=== PATIENT | male | born 1975 | race Caucasian/White ===

== ENCOUNTER 2023-07-06 08:18 | Outpatient (OUT) | payer OTHER, SELFPAY ==
[2023-07-06 08:40] LABS: Basophils Absolute Auto 0.1 10^3/uL (0.0-0.1); Basophils Percent Auto 1.9 % (0.2-2.0); Eosinophils Absolute Auto 0.2 10^3/uL (0.0-0.7); Eosinophils Percent Auto 2.6 % (0.9-7.0); Hematocrit 43.7 % (42.0-54.0); Hemoglobin 15.4 g/dL (14.0-18.0); Immature Granulocytes Abs Auto 0.01 10^3/uL (0.00-0.03); Immature Granulocytes Pct Auto 0.2 % (0.0-0.5); Lymphocytes Absolute Auto 2.7 10^3/uL (1.2-3.8); Lymphocytes Percent Auto 46.1 % (20.5-60.0); Mean Corpuscular HGB Conc 35.2 g/dL (29.9-35.2); Mean Corpuscular Hemoglobin 32.8 pg (25.9-34.0); Mean Corpuscular Volume 93.2 fL (80.0-94.0); Mean Platelet Volume 10.6 fL (9.5-13.5); Monocytes Absolute Auto 0.5 10^3/uL (0.3-0.8); Neutrophils Absolute Auto 2.4 10^3/uL (1.4-6.5); Neutrophils Percent Auto 40.2 % (43.0-75.0); Platelet Count 191 10^3/uL (150-450); Red Blood Count 4.69 10^6/uL (4.70-6.10); Red Cell Distribution Width 11.4 % (11.0-15.0); White Blood Count 5.9 10^3/uL (4.0-11.0)
[2023-07-06 09:12] LABS: Bilirubin Urine NEGATIVE (NEGATIVE); Blood Urine NEGATIVE (NEGATIVE); Clarity Urine CLEAR (CLEAR); Color Urine LT. YELLOW (YELLOW); Glucose Urine UA NEGATIVE (NEGATIVE); Ketones Urine NEGATIVE (NEGATIVE); Leukocyte Esterase Urine NEGATIVE (NEGATIVE); Nitrite Urine NEGATIVE (NEGATIVE); Protein Urine NEGATIVE (NEG/TRACE); Urine Microscopic Indicated NO; Urobilinogen Urine 0.2 EU/dL (0.2-1.0); pH Urine 5.5 (5.0-9.0)
[2023-07-06 09:18] LABS: Alanine Aminotransferase 81 U/L (16-63); Albumin Globulin Ratio 0.9; Albumin Level 3.8 g/dL (3.4-5.0); Alkaline Phosphatase 56 U/L (46-116); Anion Gap 13.3; Aspartate Amino Transferase 40 U/L (15-37); BUN Creatinine Ratio 7.5; Calcium 8.7 mg/dL (8.5-10.1); Carbon Dioxide 27.6 mmol/L (21.0-32.0); Chloride 102 mmol/L (98-107); Chol HDL Ratio 3.6; Cholesterol 214 mg/dL (<=200); Estimated GFR (African America >60 (>=60); Estimated GFR (Non-African Ame >60 (>=60); Globulin 4.2 g/dL; Glucose 107 mg/dL (74-106); HDL Cholesterol 59 mg/dL (40-60); Potassium 3.9 mmol/L (3.5-5.1); Sodium 139 mmol/L (136-145); TSH W/ REFLEX FT4 5.109 (0.358-3.740); Triglycerides 198 mg/dL (<=150); VLDL CHOLESTEROL 39.6 mg/dL
== END 2023-07-06 08:19 | disposition home or self-care (01) ==
LOC: LAB 08:19
PROVIDERS: PCP Nurse Practitioner; Visit Provider Nurse Practitioner
DX: R53.83 Other fatigue (principal); I10 Essential (primary) hypertension
CPT/HCPCS: 36415; 80053; 80061; 81003; 84443; 85025

== ENCOUNTER 2023-07-12 07:56 | Outpatient (OUT) | payer OTHER, SELFPAY ==
--- OUTSIDE RECORDS SUMMARY | 2023-07-12 08:00 | XMS_ITS | CCD ---
Author Name Unknown Address [address] [place] [id number] Organization [facility] Care Team Providers Care Senior Biostatistician Name Role Phone Rice, Kong W Unavailable Unavailable Rice, Kong W Unavailable Unavailable NONE, XXXX Unavailable Unavailable HIGHLANDER, LISBET Admitting Unavailable HIGHLANDER, LISBET Attending Unavailable WEST, STEVEN Rodrigues Consulting Unavailable HIGHLANDER, LISBET Consulting Unavailable HIGHLANDER, LISBET Admitting Unavailable HIGHLANDER, LISBET Attending Unavailable SIMON SYKES Primary Care Unavailable HIGHLANDER, LISBET Admitting Unavailable HIGHLANDER, LISBET Attending Unavailable SIMON SYKES Primary Care Unavailable HIGHLANDER, LISBET Consulting Unavailable JIMWESLEY NIETO Consulting Unavailable ALBERTAGLORIA Consulting Unavailable HIGHLANDER, LISBET Admitting Unavailable HIGHLANDER, LISBET Attending Unavailable WESTSTEVEN V Consulting Unavailable HIGHLANDER, LISBET Consulting Unavailable HIGHLANDER, LISBET Admitting Unavailable HIGHLANDER, LISBET Attending Unavailable SIMON SYKES Primary Care Unavailable ANAHI DEJESUS Attending Unavailable Allergies Allergy Classification Reported Allergen(s) Allergy Type Date of Onset Reaction(s) Facility (1 source) Erythromycin Drug Allergy [facility] Repository (1 source) Penicillin Drug Allergy [facility] Rep[facility] (1 source) Sulfonamides (Antibiotic) Drug allergy (disorder) [facility] Rep[facility] Problems Active Problems Problem Classification Problem Date Documented Date Episodic/Chronic Other connective tissue disease (5 sources) Achilles tendinitis, left leg; Translations: [ACHILLES TENDINITIS LEFT LEG] Onset: 08-26-2019 Episodic Other non-traumatic joint disorders (5 sources) Pain in left ankle and joints of left foot; Translations: [PAIN IN LEFT ANKLE] Onset: 09-11-2019 Episodic Residual codes; unclassified (1 source) Other specified postprocedural states; Translations: [OTH SPECIFIED POSTPROCEDURAL STATES] Onset: 03-13-2020 Sprains and strains (1 source) Strain of left Achilles tendon, sequela; Translations: [STRAIN LEFT ACHILLES TENDON SEQUELA] Onset: 03-13-2020 Episodic Substance-related disorders (1 source) Nicotine dependence, chewing tobacco, uncomplicated; Translations: [NICOTINE DEPEND CHEW TOBACCO UNCOMP] Onset: 09-11-2019 Chronic Past or Other Problems Problem Classification Problem Date Documented Da te Episodic/Chronic Other connective tissue disease (1 source) Pain in left foot; Translations: [PAIN IN LEFT FOOT] Onset: 09-11-2019 Episodic Results Test Name Value Interpretation Reference Range Facil ity XR ANKLE LT MIN 3 Von 2019 XR ANKLE LT MIN 3 V PROCEDURE: XR ANKLE LT MIN 3 V COMPARISON: 08/12/2019 HISTORY: Pain of left ankle joint FINDINGS: BONES:No fracture, acute abnormality, or significant arthropathy. SOFT TISSUES:Anterior ankle soft tissue swelling. Suspected marked thickening of the Achilles tendon EFFUSION:None visible. OTHER: Negative. IMPRESSION: Suspected marked thickening of the Achilles tendon Electronically authenticated by: STEVEN MCLAIN Date: 2020-03-03 14:27 Normal [facility] XR ANKLE LT MIN 3 VIEWSon XR ANKLE LT MIN 3 VIEWS Patient: SCOTTY WILSON Exam Date: 08/12/2019 : 1975 Gender:M Ordering : DR. LISBET CEDILLO D.P.MOlivia Admission #: [id number] Family : Order #: [id number] CLICK HERE TO VIEW EXAM RADIOLOGY REPORT PROCEDURE: RADIOGRAPH ANKLE LEFT MIN 3 VIEWS COMPARISON: None. INDICATIONS: Acute posterior left ankle pain with palpable lump, initial imaging FINDINGS: BONES: No fracture, acute abnormality, or significant arthropathy. SOFT TISSUES: Posterior soft tissue swelling in the region of the Achilles tendon, corresponding to the patient's palpable mass demarcated with a marker EFFUSION: None visible. OTHER: Negative. CONCLUSION: 1. Posterior soft tissue swelling possibly involving the Achilles tendon Dictated by: Steven Mclain M.D. on 08/12/2019 at 10:11 Approved by: Steven Mclain M.D. on 08/12/2019 at 10:12 Normal [facility] Coding Summary.on 12-22-2017 Coding Summary. CODING DATE: 12/22/2017 [facility] STATUS: Home (Routine DC) PAYOR: Commercial Insurance APC DESCRIPTION 5732 Level 2 Minor Procedures ADMIT DX: REASON FOR VISIT DX: Z30.2 Encounter for sterilization FINAL DX: PRINCIPAL: Z30.2 Encounter for sterilization SECONDARY: PYMT PROC APC STAT DESCRIPTION DOCTOR NAME DATE NOTE: The code number assigned matches the documented diagnosis and / or procedure in the patient's chart. However, the narrative phrase printed from the coding software may appear abbreviated, or result in slightly different terminology. Coded By: Lydia Najera Date Saved: 12/22/2017 07:33 am Normal [facility] Encounters Encounter Date Encounter Type Care Provider Facility Start: 06-21-2023 End: 06-21-2023 ambulatory ANAHI AVALOSXENIABonifacio Not Available Start: 03-10-2020 End: 04-14-2020 Patient encounter procedure [facility] Facility:H1 Start: 03-03-2020 End: 03-04-2020 Patient encounter procedure [facility] Facility:H1 Start: 09-03-2019 End: 09-03-2019 Patient encounter procedure [facility] Facility:H1 Start: 08-26-2019 Encounter for other preprocedural examination [facility] Start: 08-22-2019 End: 08-23-2019 Patient encounter procedure [facility] Facility:H1 Start: 08-12-2019 End: 08-13-2019 Patient encounter procedure [facility] Facility:H1 Start: 12-11-2017 End: 12-12-2017 Ambulatory Kong Holt Facility:[facility] Encounter for other preprocedural examination [facility] Payers Date Payer Category Payer Unknown [id number] 1975 Unknown [id number] 1975 Unknown [id number] 1975 Unknown [id number] .[id number] [id number] 1975 Unknown [id number] .[id number] [id number] 1975 Unknown [id number] 1957 Private Health Insurance [id number] Summary Purpose Family History No Family History Records FoundNo Family History Records FoundNo Family History Records Found Advance Directives No Advanced Directives Records FoundNo Advanced Directives Records FoundNo Advanced Directives Records Found Additional Source Comments (unrecognized sect ion and content) No Status Records FoundNo Status Records FoundNo Status Records Found INFORMATION SOURCE (unrecogn ized section and content) DATE CREATED AUTHOR 12/25/2017 [facility] DATE CREATED AUTHOR AUTHOR'S ORGANIZ ATION 04/15/2020 [facility] DATE CREATED AUTHOR AUTHOR'S ORGANIZ ATION 06/23/2023 [facility] FOR RECORDS PERTAINING TO PATIENTS WHO ARE OR HAVE BEEN ENROLLED IN A CHEMICAL DEPENDENCY/SUBSTANCEABUSE PROGRAM, SOME INFORMATION MAY BE OMITTED. This clinical summary was aggregated from multiple sources. Caution should be exercised in using it in the provision of clinical care. This summary normalizes information from multiple sources, and as a consequence, information in this document may materially change the coding, format and clinical context of patient data. In addition, data may be omitted in some cases. CLINICAL DECISIONS SHOULD BE BASED ON THE PRIMARY CLINICAL RECORDS. [employer] [facility]. provides no warranty or guarantee of the accuracy or completeness of information in this document.
== END 2023-07-12 07:57 | disposition home or self-care (01) ==
LOC: SLEEP 07:56
PROVIDERS: PCP Nurse Practitioner; Visit Provider Nurse Practitioner
DX: G47.33 Obstructive sleep apnea (adult) (pediatric) (principal)
CPT/HCPCS: 95806

== ENCOUNTER 2023-08-09 08:18 | Outpatient (OUT) | payer OTHER, SELFPAY ==
--- OUTSIDE RECORDS SUMMARY | 2023-08-09 08:21 | XMS_ITS | CCD ---
Author Name Unknown Address [address] [place] [address] Organization [facility] Care Team Providers Care Community Recreation Coordinator Name Role Phone Rice, Kong W Unavailable Unavailable Rice, Kong W Unavailable Unavailable NONE, XXXX Unavailable Unavailable HIGHLANDER, LISBET Admitting Unavailable HIGHLANDER, LISBET Attending Unavailable WEST, STEVEN Rodrigues Consulting Unavailable HIGHLANDER, LISBET Consulting Unavailable HIGHLANDER, LISBET Admitting Unavailable HIGHLANDER, LISBET Attending Unavailable NADERERSIMON Primary Care Unavailable HIGHLANDER, LISBET Admitting Unavailable HIGHLANDER, LISBET Attending Unavailable NADERER, SIMON Harrington Primary Care Unavailable HIGHLANDER, LISBET Consulting Unavailable JIM, WESLEY Consulting Unavailable ALBERTA, GLORIA Consulting Unavailable HIGHLANDER, LISBET Admitting Unavailable HIGHLANDER, LISBET Attending Unavailable WEST, STEVEN Rodrigues Consulting Unavailable HIGHLANDER, LISBET Consulting Unavailable HIGHLANDER, LISBET Admitting Unavailable HIGHLANDER, LISBET Attending Unavailable NADERESIMON Alonso Primary Care Unavailable NATALIA LOPEZ Attending Unavailable AICHHOLBonifacio, NATALIA Attending Unavailable Aichholbonifacio CLAY HOUSE WORKER-Natalia FERNÁNDEZ Primary Care Provider SATHISH DE LA CRUZ Attending Unavailable NATALIA LOPEZ Referring Unavailable NATALIA LOPEZ Primary Care Unavailable Allergies Allergy Classification Reported Allergen(s) Allergy Type Date of Onset Reaction(s) Facility (1 source) Erythromycin Drug Allergy [facility] Repository (1 source) Penicillin Drug Allergy [facility] Repository (1 source) Sulfonamides (Antibiotic) Drug allergy (disorder) [facility] Repository (2 sources) Erythromycin; Translations: [ERYTHROMYCIN] Drug Allergy 3 Other (See Comments) [facility] (2 sources) Penicillins; Translations: [PENICILLINS] Propensity to adverse reactions to drug 3 Other (See Comments) [facility] (2 sources) Sulfamethazine; Translations: [SULFAMETHAZINE] Drug Allergy 3 Other (See Comments) [facility] Medications Current Medications Medication Drug Class(es) Dates Sig (Normalized) Sig (Original) amLODIPine 5 mg oral tablet (1 source) Dihydropyridine [facility] Eduardo Start: 07-13-2023 End: 08-12-2023 take 1 tablet by mouth in the morning amLODIPine (NORVASC) 5 mg tablet Take 1 tablet (5 mg total) by mouth in the morning. 0 07/13/2023 08/12/2023 Active multivit-min/ferr ous fumarate (MULTI VITAMIN ORAL) (1 source) multivit-min/earlene rosanne fumarate (MULTI VITAMIN ORAL) Take by mouth. 0 Active Problems Active Problems Problem Classification Problem Date Documented Date Episodic/Chronic Hemorrhoids (2 sources) Skin tag; Translations: [Residual hemorrhoidal skin tags] Onset: 08-02-2023 08-02-2023 Episodic Other circulatory disease (1 source) H/O: hypertension; Translations: [Personal history of other diseases of the circulatory system] 08-02-2023 Episodic Other circulatory disease (1 source) Personal history of other diseases of the circulatory system; Translations: [Personal history of other diseases of the circulatory system] Onset: 08-02-2023 Episodic Other connective tissue disease (5 sources) Achilles tendinitis, left leg; Translations: [ACHILLES TENDINITIS LEFT LEG] Onset: 08-26-2019 Episodic Other non-traumatic joint disorders (5 sources) Pain in left ankle and joints of left foot; Translations: [PAIN IN LEFT ANKLE] Onset: 09-11-2019 Episodic Other skin disorders (1 source) Pilar cyst of scalp; Translations: [Pilar cyst] 08-02-2023 Episodic Other skin disorders (1 source) Pilar cyst; Translations: [Pilar cyst] Onset: 08-02-2023 Episodic Residual codes; unclassified (1 source) Other specified postprocedural states; Translations: [OTH SPECIFIED POSTPROCEDURAL STATES] Onset: 03-13-2020 Sprains and strains (1 source) Strain of left Achilles tendon, sequela; Translations: [STRAIN LEFT ACHILLES TENDON SEQUELA] Onset: 03-13-2020 Episodic Substance-related disorders (1 source) Nicotine dependence, chewing tobacco, uncomplicated; Translations: [NICOTINE DEPEND CHEW TOBACCO UNCOMP] Onset: 09-11-2019 Chronic Unclassified (1 source) Cyst Onset: 08-02-2023 Past or Other Problems Problem Classification Problem [...] by: STEVEN MCLAIN Date: 2020-03-03 14:27 Normal [facility] XR ANKLE LT MIN 3 VIEWSon XR ANKLE LT MIN 3 VIEWS Patient: ULISSES WILSON Exam Date: 08/12/2019 : 1975 Gender:M Ordering : DR. LISBET PuentesPNani Admission #: [id number] Family : Order #: [id number] CLICK HERE TO VIEW EXAM RADIOLOGY REPORT [...] Mclain M.D. on 08/12/2019 at 10:12 Normal [facility] Coding Summary.on 12-22-2017 Coding Summary. CODING DATE: 12/22/2017 FINAL [facility] STATUS: Home (Routine DC) PAYOR: Commercial Insurance [...] Najera Date Saved: 12/22/2017 07:33 am Normal [facility] Encounters Encounter Date Encounter Type Care Provider Facility Start: 08-02-2023 End: 08-02-2023 ambulatory SATHISH DE LA CRUZ [facility] Start: 08-02-2023 End: 08-02-2023 Office outpatient new 20 minutes Sathish De La Cruz DO Work Phone: [facility] Comment on above: Pilar cyst of scalp (Primary Dx); Skin tags, anus or rectum; History of hypertension Start: 07-13-2023 End: 07-13-2023 ambulatory NATALIA AICHHOLZ Not Available Start: 06-21-2023 End: 06-21-2023 ambulatory NATALIA AICHHOLZ Not Available Start: 03-10-2020 End: 04-14-2020 Patient encounter procedure [facility] Facility:H1 Start: 03-03-2020 End: 03-04-2020 Patient encounter procedure [facility] Facility:H1 Start: 09-03-2019 End: 09-03-2019 Patient encounter procedure [facility] Facility:H1 Start: 08-26-2019 Encounter for other preprocedural examination [facility] Start: 08-22-2019 End: 08-23-2019 Patient encounter procedure [facility] Facility:H1 Start: 08-12-2019 End: 08-13-2019 Patient encounter procedure [facility] Facility:H1 Start: 12-11-2017 End: 12-12-2017 Ambulatory Kong Holt Facility[facility] Encounter for other preprocedural examination [facility] Plan of Treatment Date Care Activity Detail Author Start: 08-23-2023 End: 08-23-2023 Patient encounter procedure 08/23/2023 10:30 AM EST Office Visit [facility] [address] [place] [phone] Sathish De La Cruz DO [address] [place] [address] [facility] Start: 03-10-2023 Influenza vaccination Influenza Vacc ine [facility] Start: 1996 DTaP,Tdap and Td Vaccines (1 - Tdap) DTaP,Tdap and Td Vaccines (1 - Tdap) [facility] Start: 10-09-1995 Adult BMI Screening Adult BMI Screen ing [facility] Start: 1989 Depression Screening Depression Scre ening [facility] Start: 1989 Tobacco Screening Tobacco Screening [facility] Payers Date Payer Category Payer Private Health Insurance [employer] POS II [id number] 2015-Present [phone] [address] [place] [address] [id number] 1975 Unknown [id number] 1975 Unknown [id number] 1975 Unknown [id number] 1975 Unknown [id number] 1975 Unknown [id number] 1975 Unknown [id number] 1975 Unknown [id number] 1975 Unknown [id number] 1957 Private Health Insurance [id number] Social History Date Type Detail Facility Start: 08-02-2023 [facility] Start: 08-02-2023 Tobacco use and exposure User of smokeless tobacco [facility] Start: 08-20-2020 End: 08-02-2023 History of Social function [facility] Start: 08-20-2020 End: 08-02-2023 Tobacco use panel [facility] Childcare Unknown [facility] Start: 1975 Sex Assigned At Not on file P [facility] History of Present illness Narrative 08-02-2023 Sathish De La Cruz, DO - 08/02/2023 9:00 AM EST Note Date & Type Note Facility 08-02-2023 History of Presen t illness Narrative Images from the original note were not included. [facility] [address] [facility] [id number] CONSULT NOTE Ulisses Wilson 47 y.o. CHIEF COMPLAINT Chief Complaint Patient presents with Cyst SEBACEOUS CYST, TOP OF HEAD, LEFT& RIGHT TOWARDS BACK OF HEAD, REFERRED BY NATALIA LOPEZ NP Ulisses Wilson is a 47-year-old male who presents complaining of 3 cysts on his scalp which have been present for about 7-8 years. He wishes to have them excised. He saw me about 5 or 6 years ago about the same did not have them removed. He also wants know what he can do for skin tags about his left eye area. MEDICATION Current Outpatient Medications: amLODIPine (NORVASC) 5 mg tablet, Take 1 tablet (5 mg total) by mouth in the morning., Disp: , Rfl: multivit-min/ferrous fumarate (MULTI VITAMIN ORAL), Take by mouth., Disp: , Rfl: ALLERGY Allergies Allergen Reactions Erythromycin Other (See Comments) Throat swells Penicillins Other (See Comments) Throat swells Sulfamethazine Other (See Comments) Throat swells MEDICAL HISTORY History reviewed. No pertinent past medical history. SURGICAL HISTORY History reviewed. No pertinent surgical history. SOCIAL HISTORY Social History Socioeconomic History Marital status: Single Spouse name: Not on file Number of children: Not on file Years of education: Not on file Highest education level: Not on file Occupational History Not on file Tobacco Use Smoking status: Never Smokeless tobacco: Current Vaping Use Vaping Use: Never used Substance and Sexual Activity Alcohol use: Not on file Drug use: Not on file Sexual activity: Not on file Other Topics Concern Not on file Social History Narrative Not on file Social Determinants of Health Financial Resource Strain: Not on file Food Insecurity: Not on file Transportation Needs: Not on file Physical Activity: Not on file Stress: Not on file Social Connections: Not on file Interpersonal Safety: Not on file Housing Instability: Not on file FAMILY HISTORY Family History Problem Relation Age of Onset Diabetes Mother Stroke Father Vision loss Brother Hypertension Brother Diabetes Maternal Aunt Cancer Maternal Grandmother Cancer Paternal Grandmother REVIEW OF SYSTEMS: Constitutional: Denies fevers, denies recent illnesses. Rest review of systems negative except as above. PHYSICAL EXAM Constitutional: He is oriented to person, place, and time. Vital signs are normal. He appears well-developed and well-nourished. About the left eye he has multiple small skin tags 1 mm each about 5-6. Scalp: He has a 2 cm pilar cyst on the top of the scalp a 1.5 cm left posterior pilar cyst and a 0.5 cm pilar cyst on the right posterior scalp. Neurological: He is alert and oriented to person, place, and time. Skin: Skin is warm, dry and intact. Psychiatric: He has a normal mood and affect. His speech is normal and behavior is normal. Cognition and memory are normal. IMPRESSION 1. Multiple pilar cysts of scalp 2. Skin tags about left eye 3. History of hypertension ASSESSMENT & PLAN Return to office for excision of pilar cysts; risks of the procedure can include infection bleeding pain or recurrence. He was told I can remove the skin tags or he can have his remove them after wiping scissors and tweezers with alcohol and snipping them with scissors. He will have her try. Evaluation included: Preparing to see the patient (e.g., review of tests) Obtaining and/or reviewing separately obtained history Performing a medically appropriate examination and/or evaluation Counseling and educating the patient/family/caregiver Referring and communicating with other health anesthesiologist and critical care Pilar cyst of scalp [L72.11] Sathish De La Cruz, This note was created with the assistance of a speech recognition program. While intending to generate a timely document that accurately reflects the content of the visit, no guarantee can be provided that every grammatical or spelling mistake has been or will be identified or corrected. Thank you for your understanding. documented in this encounter [facility] Evaluation note Note Date & Type Note Facility Evaluation note Diagnosis Pilar cyst of scalp- Primary Skin tags, anus or rectum Residual hemorrhoidal skin tags History of hypertension Personal history of other diseases of circulatory system documented in this encounter [facility] Instructions Note Date & Type Note Facility Instructions Not on filedocumented in this en counter [facility] Summary Purpose Family History No Family History Records FoundNo Family History Records FoundNo Family History Records FoundNo Family History Records Found Advance Directives No Advanced Directives Records FoundNo Advanced Directives Records FoundNo Advanced Directives Records FoundNo Advanced Directives Records Found Additional Source Comments (unrecognized sect ion and content) No Status Records FoundNo Status Records FoundNo Status Records FoundNo Status Records Found INFORMATION SOURCE (unrecogn ized section and content) DATE CREATED AUTHOR [facility]/25/2017 [facility] DATE CREATED AUTHOR AUTHOR'S ORGANIZ ATION 04/15/2020 [facility] DATE CREATED AUTHOR AUTHOR'S ORGANIZ ATION 07/14/2023 [facility] EPIC DATE CREATED AUTHOR AUTHOR'S ORGANIZ ATION 08/05/2023 [facility] Reason for Visit (unrecogniz ed section and content) Reason Comments Cyst SEBACEOUS CYST, TOP OF HEAD, LEFT& RIGHT TOWARDS BACK OF HEAD, REFERRED BY NATALIA LOPEZ NP Care Teams (unrecognized sec tion and content) Community Recreation Coordinator Relationship Specialty Start Date End Date Natalia Lopez, CLAY HOUSE WORKER-LOADER [employer] [address] [place] [address] PCP - General Nurse Practitioner 06/21/23 FOR RECORDS PERTAINING TO PATIENTS WHO ARE [...] BE BASED ON THE PRIMARY CLINICAL RECORDS. [facility] [employer] [facility]. provides no warranty or guarantee of the accuracy or completeness of information in this document.
[2023-08-09 11:51] LABS: TSH W/ REFLEX FT4 4.302 uIU/mL (0.358-3.740)
[2023-08-09 12:29] LABS: Estimated Average Glucose 105 mg/dL; Glycohemoglobin A1C 5.3 % (4.5-6.2)
[2023-08-09 15:34] LABS: Free T4 0.84 ng/dL (0.76-1.46)
== END 2023-08-09 08:19 | disposition home or self-care (01) ==
LOC: LAB 08:19
PROVIDERS: PCP Nurse Practitioner; Visit Provider Nurse Practitioner
DX: R79.89 Other specified abnormal findings of blood chemistry (principal); R73.09 Other abnormal glucose
CPT/HCPCS: 36415; 83036; 84439; 84443

== ENCOUNTER 2024-08-08 14:36 | Outpatient (OUT) | payer OTHER, SELFPAY ==
--- NOTE | 2024-08-08 14:43 | CA_ITS ---
Patient Name: SCOTTY WILSON MR#: [id number] : 1975 Exam Date: 08/08/2024 Ordering Doctor: DR. MAUREEN GARAY M.D. ECHOCARDIOGRAM REPORT PROCEDURE: CA ECHO DOPPLER COMPLETE INDICATIONS: Abnormal EKG COMPARISON: None. DESCRIPTION: COMPLETE ECHOCARDIOGRAM Real-time transthoracic echocardiography with 2D, M-mode, spectral and color flow Doppler performed. QUALITY: Technical quality was good. LEFT VENTRICLE: Normal chamber size. Mild concentric left ventricular hypertrophy. LV EF: Visual estimation of left ventricular ejection fraction is hyperdynamic at 70-75%. DIASTOLIC: Normal diastolic function. ATRIAL SEPTUM: LEFT ATRIUM: Normal chamber size. RIGHT ATRIUM: Normal chamber size. RIGHT VENTRICLE: Normal chamber size. Normal right ventricular systolic function. TRICUSPID VALVE: Normal mobility and thickness. No stenosis with trivial regurgitation. Mild pulmonary hypertension. RVSP 36 mmHg MITRAL VALVE: Normal mobility and thickness. No evidence of mitral valve stenosis. There is no mitral annular calcification. No mitral regurgitation. AORTIC VALVE: Normal trileaflet appearance. No visible sclerosis. Normal leaflet mobility. No evidence of aortic valve stenosis. AORTIC ROOT: Normal diameter and appearance. Normal size ascending aorta measuring 2.9 cm. PULMONIC VALVE: Normal thickness and mobility. No stenosis. No regurgitation. PERICARDIUM: No evidence of pericardial effusion. IVC: Collapses with inspirations. Normal size. PLEURA: CONCLUSION: 1. Mild concentric left ventricular hypertrophy with hyperdynamic systolic function. LVEF is estimated at 70 to 75%. 2. Normal right ventricular size and systolic function. 3. Normal diastolic function. 4. No significant valvular dysfunction. 5. Mildly elevated right-sided pressures. Adult Echocardiography Procedure Report Left Ventricle LVEDD (3.7 - 5.6 cm): 4.67 cm LVESD (2.2 - 4.0 cm): 2.64 cm LVIVS thickness (0.6 - 1.2 cm): 1.26 cm LVPW thickness (0.5 - 1.0 cm): 1.31 cm e': 0.12 m/s E - e': 7.26 LVOT Max Gradient: 4.82 mm[Hg] LVOT Area (cm2): 1.10 m/s Peak Velocity (LVOT): 1.10 m/s Mean Velocity (LVOT): 0.75 m/s LVOT Diameter 2.23 cm Left Ventricular Ejection Fraction: 70-75 % Left Atrium LA Volume Index (2D A2C): 22.64 ml/m2 Left Atrium Systolic Dimension: 3.75 cm Mitral Valve MV E to A Ratio: 1.02 Mitral Valve A-Wave Peak Velocity: 0.87 m/s Mitral Valve E-Wave Peak Velocity: 0.89 m/s Right Ventricle RV Internal Diastolic Dimension: 3.28 cm Aorta AO Root Diam: 2.99 cm Ascending Ao Diam: 2.92 cm Aortic Valve AoV Area (Peak Nick): 2.29 cm2, 2.15 cm2 AoV Area (VTI): 2.53 cm2, 2.52 cm2 Peak Velocity(Antegrade Flow): 1.99 m/s, 1.75 m/s Peak Gradient(Antegrade Flow): 15.79 mm[Hg], 12.30 mm[Hg] Mean Velocity(Antegrade Flow): 1.28 m/s, 1.22 m/s Mean Gradient(Antegrade Flow): 7.44 mm[Hg], 6.68 mm[Hg] Velocity Time Integral: 30.59 cm, 30.37 cm Tricuspid Valve Peak Velocity (Regurgitant Flow): 1.75 m/s, 2.27 m/s, 2.76 m/s, 2.78 m/s, 2.81 m/s, 2.88 m/s Pulmonic Valve Mean Gradient: 3.40 mm[Hg], 3.86 mm[Hg] Mean Velocity: 0.85 m/s, 0.92 m/s Peak Velocity: 1.34 m/s Peak Gradient: 6.88 mm[Hg], 7.49 mm[Hg] Right Atrium Right Atrium Systolic Pressure: 48.64 ml, 48.64 ml Dictated by: Bertin Thomas M.D. on 08/08/2024 at 17:04 Approved by: Bertin Thomas M.D. on 08/08/2024 at 17:06
--- OUTSIDE RECORDS SUMMARY | 2024-08-08 14:43 | XMS_ITS | CCD ---
Author Organization [facility] Care Team Providers Care Executive Administrative Asst Name Role Phone Jonathon, Kong W Unavailable Unavailable Rice, Kong W Unavailable Unavailable NONE, XXXX Unavailable Unavailable HIGHLANDER, LISBET Admitting Unavailable HIGHLANDER, LISBET Attending Unavailable WESTSTEVEN V Consulting Unavailable HIGHLANDER, LISBET Consulting Unavailable HIGHLANDER, LISBET Admitting Unavailable HIGHLANDER, LISBET Attending Unavailable NADCHINEDU BONNER Primary Care Unavailable HIGHLANDER, LISBET Admitting Unavailable HIGHLANDER, LISBET Attending Unavailable CHINEDU SYKES Primary Care Unavailable HIGHLANDER, LISBET Consulting Unavailable WESLEY FERNANDEZ Consulting Unavailable ALBERTA, GLORIA Consulting Unavailable HIGHLANDER, LISBET Admitting Unavailable HIGHLANDER, LISBET Attending Unavailable WESTSTEVEN V Consulting Unavailable HIGHLANDER, LISBET Consulting Unavailable HIGHLANDER, LISBET Admitting Unavailable HIGHLANDER, LISBET Attending Unavailable CHINEDU SYKES Primary Care Unavailable Aichholz Natalia ATKINS Primary Care Provider Chinedu Sykes MD Primary Care Provider [phone] SATHISH DE LA CRUZ Attending Unavailable AICHHOLZ, NATALIA J Referring Unavailable AICHHOLZ, NATALIA J Primary Care Unavailable SATHISH DE LA CRUZ Attending Unavailable AICHHOLZ, NATALIA Darlene Referring Unavailable AICHHOLZ, NATALIA J Primary Care Unavailable PATRICIA CENTENO Attending Unavailable AICHHOLZ, NATALIA J Referring Unavailable AICHHOLZ, NATALIA J Primary Care Unavailable ROMAHHOLBonifacio, NATALIA J Primary Care Unavailable SATHISH MONSIVAIS Attending UnavailSATHISH Meeks Attending Unavaila SATHISH Carolina Referring Unavaila ble JOHN, NATALIA J Primary Care Unavailable SATHISH DE LA CRUZ Referring Unavailable JOHN, NATALIA J Primary Care Unavailable SATHISH MONSIVAIS Attending Unavaila SATHISH [place] Referring Unavaila ble NATALIA LOPEZ J Primary Care Unavailable HEALTH, 360 Referring Unavailable AICTATIANNA, NATALIA J Primary Care Unavailable JOHN, NATALIA Attending Unavailable AICHHOLZ, NATALIA Attending Unavailable AICHHOLZ, NATALIA Attending Unavailable AD DENG Attending Unavailable AICHHOLZ, NATALIA Attending Unavailable AICHHOLZ, NATALIA Attending Unavailable AICHHOLZ, NATALIA Attending Unavailable PETRONA OCONNELL Attending Unavailable AICHHOLZ, NATALIA Attending Unavailable MAUREEN GARAY Attending Unavailable Allergies Allergy Classification Reported Allergen(s) Allergy Type Date of Onset Reaction(s) Facility (1 source) Erythromycin Drug Allergy [facility] (1 source) Penicillin Drug Allergy [facility] (1 source) Sulfonamides (Antibiotic) Drug allergy (disorder) [facility] (12 sources) Erythromycin; Translations: [ERYTHROMYCIN] Drug Allergy 3 Other (See Comments), Other [facility] (6 sources) Penicillins; Translations: [PENICILLINS] Propensity to adverse reactions to drug 3 Other (See Comments) [facility] (6 sources) Sulfamethazine; Translations: [SULFAMETHAZINE] Drug Allergy 3 Other (See Comments) [facility] (6 sources) Penicillins Drug Allergy 3 Other [facility] (6 sources) Sulfadimidine Allergy to substance 3 Other [facility] (1 source) amLODIPine; Translations: [AMLODIPINE] Drug Allergy 5 [facility] Repository Medications Current Medications Medication Drug Class(es) Dates Sig (Normalized) Sig (Original) amLODIPine 10 mg oral tablet (8 sources) Dihydropyridine Calcium Channel Eduardo Start: 08-14-2023 End: 11-12-2023 take 1 tablet by mouth in the morning amLODIPine (NORVASC) 10 mg tablet Take 1 tablet (10 mg total) by mouth in the morning. 0 08/14/2023 11/12/2023 Active Start: 07-13-2023 End: 08-14-2023 take 1 tablet by mouth in the morning amLODIPine (Norvasc) 5 MG tablet Indications: Primary hypertension (CMS/HCC) Take 1 tablet (5 mg) by mouth in the morning. 30 tablet 1 07/13/2023 08/14/2023 Discontinued 24 hr metoprolol succinate 50 mg extended release oral tablet (3 sources) beta-Adrenergic Eduardo Start: 03-12-2024 End: 06-10-2024 take 1 tablet by mouth once daily metoprolol succinate XL (Toprol-XL) 50 MG 24 hr tablet Indications: Primary hypertension (CMS/HCC) Take 1 tablet (50 mg) by mouth Daily Do not crush or chew. 90 tablet 1 03/12/2024 06/10/2024 Active multivit-min/ferr ous fumarate (MULTI VITAMIN ORAL) (3 sources) multivit-min/earlene ro us fumarate (MULTI VITAMIN ORAL) Take by mouth. 0 Active Problems Active Problems Problem Classification Problem Date Documented Date Episodic/Chronic Conditions associated with dizziness or vertigo (1 source) Dizziness Onset: 12-08-2023 Episodic Disorders of lipid metabolism (2 sources) Mixed hyperlipidemia; Translations: [Mixed hyperlipidemia] Onset: 07-15-2024 Chronic Essential hypertension (10 sources) Essential hypertension; Translations: [Essential (primary) hypertension] Onset: 06-21-2023 06-21-2023 Chronic Fluid and electrolyte disorders (3 sources) Hypo-osmolality and hyponatremia; Translations: [Hypokalemia] Onset: 12-08-2023 Episodic Hemorrhoids (2 sources) Skin tag; Translations: [Residual [...] TENDINITIS LEFT LEG] Onset: 08-26-2019 Episodic Other lower respiratory disease (2 sources) Hypoxia; Translations: [Hypoxemia] 04-29-2024 Episodic Other lower respiratory disease (2 sources) Snoring; Translations: [Snoring] 04-29-2024 Episodic Other non-traumatic joint disorders (5 sources) Pain in left ankle and joints of left foot; Translations: [PAIN IN LEFT ANKLE] Onset: 09-11-2019 Episodic Other nutritional; endocrine; and metabolic disorders (9 sources) Body mass index 30+ - obesity; Translations: [Obesity, unspecified] Onset: 06-21-2023 06-21-2023 Chronic Other nutritional; endocrine; and metabolic disorders (3 sources) Obesity caused by energy imbalance; Translations: [Morbid (severe) obesity due to excess calories] Onset: 01-15-2024 01-15-2024 Chronic Other nutritional; endocrine; and metabolic disorders (2 sources) Obesity, unspecified; Translations: [Obesity, unspecified] Onset: 07-15-2024 Chronic Other screening for suspected conditions (not mental disorders or infectious disease) (16 sources) Patient encounter status; Translations: [Encounter for screening for malignant neoplasm of colon] Onset: 06-21-2023 06-21-2023 Episodic Other skin disorders (3 sources) Pilar cyst of scalp; Translations: [Pilar cyst] 08-02-2023 Episodic Residual codes; unclassified (13 sources) Obstructive sleep apnea syndrome; Translations: [Obstructive sleep apnea (adult) (pediatric)] Onset: 07-19-2023 07-19-2023 Chronic Residual codes; unclassified (2 sources) Obstructive sleep apnea (adult) (pediatric); Translations: [Obstructive sleep apnea (adult) (pediatric)] Onset: 07-15-2024 Chronic Residual codes; unclassified (3 sources) Bilateral lower limb edema; Translations: [Localized edema] Onset: 02-05-2024 02-05-2024 Episodic Residual codes; unclassified (2 sources) Insomnia; Translations: [Insomnia, unspecified] 04-29-2024 Episodic Residual codes; unclassified (1 source) Other specified postprocedural states; Translations: [OTH SPECIFIED POSTPROCEDURAL STATES] Onset: 03-13-2020 Substance-related disorders (1 source) Nicotine dependence, chewing tobacco, uncomplicated; Translations: [NICOTINE DEPEND CHEW TOBACCO UNCOMP] Onset: 09-11-2019 Chronic Unclassified (1 source) POST-OP VISIT Onset: 08-30-2023 Unclassified (1 source) Cyst Onset: 08-02-2023 Unclassified (1 source) Weakness - Generalized Onset: 12-08-2023 Unclassified (1 source) EMS Onset: 12-08-2023 Past or Other Problems Problem Classification Problem Date Documented Date Episodic/Chronic Diabetes mellitus without complication (6 sources) Increased glucose level; Translations: [Other abnormal glucose] Onset: 07-09-2023 07-09-2023 Episodic Malaise and fatigue (7 sources) Fatigue; Translations: [Other fatigue] Onset: 06-21-2023 06-21-2023 Episodic Other circulatory disease (6 sources) Elevated blood-pressure reading without diagnosis of hypertension; Translations: [Elevated blood-pressure reading, without diagnosis of hypertension] Onset: 06-21-2023 Resolved: 08-14-2023 06-21-2023 Episodic Other connective tissue disease (1 source) Pain in left foot; Translations: [PAIN IN LEFT FOOT] Onset: 09-11-2019 Episodic Other connective tissue disease (6 sources) Left achilles tendonitis; Translations: [Achilles tendinitis, left leg] Onset: 06-21-2023 06-21-2023 Episodic Other connective tissue disease (6 sources) Medial epicondylitis of left humerus; Translations: [Medial epicondylitis, left elbow] Onset: 06-21-2023 06-21-2023 Episodic Other injuries and conditions due to external causes (6 sources) At low risk for fall; Translations: [History of falling] Onset: 06-21-2023 Resolved: 01-15-2024 06-21-2023 Episodic Other liver diseases (3 sources) Elevated liver enzymes level; Translations: [Abnormal levels of other serum enzymes] Onset: 01-15-2024 01-15-2024 Episodic Other non-traumatic joint disorders (6 sources) Ankle pain; Translations: [Pain in left ankle and joints of left foot] Onset: 06-21-2023 06-21-2023 Episodic Other non-traumatic joint disorders (6 sources) Pain in elbow; Translations: [Pain in left elbow] Onset: 06-21-2023 Resolved: 06-21-2023 06-21-2023 Episodic Other skin disorders (6 sources) Sebaceous cyst of skin; Translations: [Sebaceous cyst] Onset: 06-21-2023 06-21-2023 Episodic Other skin disorders (2 sources) Pilar cyst; Translations: [Pilar cyst] Onset: 08-02-2023 Episodic Sprains and strains (7 sources) Strain of left Achilles tendon, sequela; Translations: [Rupture of left Achilles tendon] Onset: 03-13-2020 06-21-2023 Episodic Results Test Name Value Interpretation Reference Range Facil ity Office Visiton 07-15-2024 Follow-up visit [id number] Ulisses Wilson 1975 M Date Provider Department Center 07/15/2024 [id number] GARAY CARD [facility] Family History Problem Relation Age of Onset Atrial fibrillation Mother Hypertension Brother Family Status - Relation Status Age at Mother Brother Level of Service:78559 MD OFFICE/OUTPATIENT NEW MODERATE MDM 45 MINUTES Reason for Visit and Comments: Abnormal 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 He is completely asymptomatic. Hypertension [128052] - Used to take amlodipine but was allergic. On metoprolol. Says his BP is usually around 140/88. Sleep Apnea [348] - Tries to be compliant with CPAP therapy. Normal [facility] COMPREHENSIVE METABOLIC PANE Lonnie 12-11-2023 Albumin [Mass/Vol] 4.9 g/dL Normal 3.2-5.3 [facility] Comment on above: Performed By: #### C ROBBIE BOSE, 1985-11, , 58033-6, 90486- 7 #### [facility] ([id number]) [address] [place] [address] 23499 ALP [Catalytic activity/Vol] 62 U/L Normal 39-130 [facility] Comment on above: Performed By: #### C ROBBIE BOSE, 1985-11, , 69458-9, 78890- 7 #### [facility] ([id number]) [address] [place] [address] 93838 ALT [Catalytic activity/Vol] 144 U/L High 0-40 [facility] Comment on above: Performed By: #### C LIDYA CMP, 1985-11, , 62679-5, 00562- 7 #### [facility] ([id number]) [address] [place] [address] 67086 Anion gap [Moles/Vol] 8 mmol/L Normal 5-15 [facility] Comment on above: Performed By: #### C BCA, CMP, 1987-11, , 24977-4, 87834- 7 #### [facility] ([id number]) [address] [place] [address] 46947 AST [Catalytic activity/Vol] 121 U/L High 0-41 [facility] Comment on above: Performed By: #### C BCA, CMP, 1987-11, , 29216-1, 15043- 7 #### [facility] ([id number]) [address] [place] [address] 59120 Bilirubin [Mass/Vol] 1.2 mg/dL Normal 0.3-1.2 [facility] Comment on above: Performed By: #### C BCA, CMP, 1987-11, , 12085-5, 22243- 7 #### [facility] ([id number]) [address] [place] [address] 90894 Calcium [Mass/Vol] 10.1 mg/dL Normal 8.5-10.5 [facility] Comment on above: Performed By: #### C BCA, CMP, 1987-11, , 71195-7, 64245- 7 #### [facility] ([id number]) [address] [place] [address] 17830 Chloride [Moles/Vol] 100 mmol/L Normal 98-109 [facility] Comment on above: Performed By: #### C BCA, CMP, 1987-11, , 95175-3, 67334- 7 #### [facility] ([id number]) [address] [place] [address] 23272 CO2 [Moles/Vol] 31 mmol/L Normal 22-32 [facility] Comment on above: Performed By: #### C BCA, CMP, 1987-11, , 80290-3, 25794- 7 #### [facility] ([id number]) [address] [place] [address] 09303 Creatinine [Mass/Vol] 0.94 mg/dL Normal 0.60-1.30 [facility] Comment on above: Result Comment: METH OD TRACEABLE TO IDMS STANDARD Performed By: #### C ROBBIE BOSE, 1985-11, , 70159-8, 23811-3 #### [facility] ([id number]) [address] [place] [address] 44704 eGFR (CKD-EPI) NON-RACE DEPENDENT >90 Normal >59 [facility] Comment on above: Result Comment: Reported eGFR is based on the CKD-EPI 2020 equation that does not use a race coefficient. Performed By: #### C ROBBIE BOSE, 1985-11, , 00685-6, 50519-7 #### [facility] ([id number]) [address] [place] [address] 64174 Glucose [Mass/Vol] 91 mg/dL Normal 65-99 [facility] Comment on above: Performed By: #### C ROBBIE BOSE, 1985-11, , 31923-1, 13057- 7 #### [facility] ([id number]) [address] [place] [address] 49752 Potassium [Moles/Vol] 4.7 mmol/L Normal 3.5-5.0 [facility] Comment on above: Performed By: #### C ROBBIE BOSE, 1985-11, , 99759-8, 88588- 7 #### [facility] ([id number]) [address] [place] [address] 94374 Protein [Mass/Vol] 8.2 g/dL High 6.0-8.0 [facility] Comment on above: Performed By: #### C ROBBIE BOSE, 1985-11, , 82320-2, 54846- 7 #### [facility] ([id number]) [address] [place] [address] 65169 Sodium [Moles/Vol] 139 mmol/L Normal 134-146 [facility] Comment on above: Performed By: #### C BCA, CMP, 1987-11, , 93740-6, 34202- 7 #### [facility] ([id number]) [address] [place] [address] 18558 Urea nitrogen [Mass/Vol] 11 mg/dL Normal 5-23 [facility] Comment on above: Performed By: #### C BCA, CMP, 1987-11, , 75564-0, 58419- 7 #### [facility] ([id number]) [address] [place] [address] 89184 CBC AND AUTO DIFFon 12-08-19 24 ABSOLUTE BASOPHIL 0.1 X10E9/L Normal 0.0-0.2 [facility] Comment on above: Performed By: #### C BCA, CMP, 1987-11, , 20186-0, 82804- 7 #### [facility] ([id number]) [address] [place] [address] 69405 ABSOLUTE NEUTROPHIL 2.1 X10E9/L Normal 1.5-6.6 [facility] Comment on above: Performed By: #### C BCA, CMP, 1987-11, , 27763-7, 77790- 7 #### [facility] ([id number]) [address] [place] [address] 06364 Basophils/100 WBC (Bld) 1.1 % Normal [facility] Comment on above: Performed By: #### C BCA, CMP, 1987-11, , 12479-0, 30611- 7 #### [facility] ([id number]) [address] [place] [address] 98568 Eosinophils (Bld) [#/Vol] 0.0 10*3/uL Normal 0.0-0.4 [facility] Comment on above: Performed By: #### C ROBBIE BOSE, 1985-11, , 53648-8, 13524- 7 #### [facility] ([id number]) [address] [place] [address] 08338 Eosinophils/100 WBC (Bld) 0.8 % Normal [facility] Comment on above: Performed By: #### C LIDYA [facility], 1987-11, , 98462-6, 32884- 7 #### [facility] ([id number]) [address] [place] [address] 35678 Erythrocyte distribution width (RBC) [Ratio] 12.0 % Normal 11.5-15.0 [facility] Comment on above: Performed By: #### C LIDYA [facility], 1987-11, , , 66410- 7 #### [facility] ([id number]) [address] [place] [address] 51312 Hematocrit (Bld) [Volume fraction] 42.1 % Normal 39-49 [facility] Comment on above: Performed By: #### Paulette BOSE [facility], 1987-11, , 82550-5, 94862- 7 #### [facility] ([id number]) [address] [place] [address] 23625 Hemoglobin (Bld) [Mass/Vol] 15.4 g/dL Normal 13.0-17.0 [facility] Comment on above: Performed By: #### Paulette BOSE CMP, 1987-11, , 38006-2, 17209- 7 #### [facility] ([id number]) [address] [place] [address] 25136 Lymphocytes (Bld) [#/Vol] 2.9 10*3/uL Normal 1.0-3.5 [facility] Comment on above: Performed By: #### C LIDYA [facility], 1987-11, , , 51521 7 #### [facility] ([id number]) [address] [place] [address] 24796 Lymphocytes/100 WBC (Bld) 52.7 % Normal [facility] Comment on above: Performed By: #### C LIDYA [facility], 1987-11, , , 86138 7 #### [facility] ([id number]) [address] [place] [address] 43276 MCH (RBC) [Entitic mass] 33.8 pg Normal 27-34 [facility] Comment on above: Performed By: #### Paulette BOSE [facility], 1987-11, , 10544-0, 23067 7 #### [facility] ([id number]) [address] [place] [address] 94003 MCHC (RBC) [Mass/Vol] 36.4 g/dL High 32-36 [facility] Comment on above: Performed By: #### Paulette BOSE [facility], 1987-11, , , 86346 7 #### [facility] ([id number]) [address] [place] [address] 64898 MCV (RBC) [Entitic vol] 93 fL Normal 80-100 [facility] Comment on above: Performed By: #### Paulette BOSE [facility], 1987-11, , , 91615 7 #### [facility] ([id number]) [address] [place] [address] 61440 Monocytes (Bld) [#/Vol] 0.4 10*3/uL Normal 0-0.9 [facility] Comment on above: Performed By: #### C BCA, CMP, 1987-11, , 87659-1, 88208- 7 #### [facility] ([id number]) [address] [place] [address] 54201 Monocytes/100 WBC (Bld) 7.8 % Normal [facility] Comment on above: Performed By: #### C BCA, CMP, 1987-11, , 30787-3, 49541- 7 #### [facility] ([id number]) [address] [place] [address] 33044 Neutrophils/100 WBC (Bld) 37.6 % Normal [facility] Comment on above: Performed By: #### C LIDYA, CMP, 1987-11, , 07753-0, 31351- 7 #### [facility] ([id number]) [address] [place] [address] 24894 Platelet mean volume (Bld) [Entitic vol] 9.2 fL Normal 7-12 [facility] Comment on above: Performed By: #### C LIDYA, CMP, 1987-11, , 47295-1, 78317- 7 #### [facility] ([id number]) [address] [place] [address] 49464 Platelets (Bld) [#/Vol] 197 10*3/uL Normal 150-450 [facility] Comment on above: Performed By: #### C BCA, CMP, 1987-11, , 24848-2, 28986- 7 #### [facility] ([id number]) [address] [place] [address] 19338 RBC COUNT 4.55 X10E12/L Normal 4.10-5.70 [facility] Comment on above: Performed By: #### C BCA, CMP, 1987-11, , 82743-0, 10710- 7 #### [facility] ([id number]) [address] [place] [address] 97155 WBC (Bld) [#/Vol] 5.5 10*3/uL Normal 4.0-11.0 [facility] Comment on above: Performed By: #### C BCA, CMP, 1987-11, , 39214-3, 93108- 7 #### [facility] ([id number]) [address] [place] [address] 86414 COMPREHENSIVE METABOLIC PANE [facility] 12-08-2023 Albumin [Mass/Vol] 4.7 g/dL Normal 3.2-5.3 [facility] Comment on above: Performed By: #### C BCA, CMP, 1987-11, , 39871-0, 85798- 7 #### [facility] ([id number]) [address] [place] [address] 77970 ALP [Catalytic activity/Vol] 59 U/L Normal 39-130 [facility] Comment on above: Performed By: #### C BCA, CMP, 1987-11, , 60093-0, 67042- 7 #### [facility] ([id number]) [address] [place] [address] 74320 ALT [Catalytic activity/Vol] 94 U/L High 0-40 [facility] Comment on above: Performed By: #### C BCA, CMP, 1987-11, , 46485-8, 22534- 7 #### [facility] ([id number]) [address] [place] [address] 44904 Anion gap [Moles/Vol] 9 mmol/L Normal 5-15 [facility] Comment on above: Performed By: #### C BCA, CMP, 1987-11, , 91871-8, 87323- 7 #### [facility] ([id number]) [address] [place] [address] 21737 AST [Catalytic activity/Vol] 81 U/L High 0-41 [facility] Comment on above: Performed By: #### C BCA, CMP, 1987-11, , 11293-8, 96893- 7 #### [facility] ([id number]) [address] [place] [address] 94258 Bilirubin [Mass/Vol] 0.8 mg/dL Normal 0.3-1.2 [facility] Comment on above: Performed By: #### C LIDYA, CMP, 1987-11, , 19161-7, 50380- 7 #### [facility] ([id number]) [address] [place] [address] 68078 Calcium [Mass/Vol] 8.7 mg/dL Normal 8.5-10.5 [facility] Comment on above: Performed By: #### C LIDYA, CMP, 1987-11, , 61617-0, 07299- 7 #### [facility] ([id number]) [address] [place] [address] 55049 Chloride [Moles/Vol] 101 mmol/L Normal 98-109 [facility] Comment on above: Performed By: #### C LIDYA, CMP, 1987-11, , 86784-3, 56045- 7 #### [facility] ([id number]) [address] [place] [address] 83910 CO2 [Moles/Vol] 22 mmol/L Normal 22-32 [facility] Comment on above: Performed By: #### C BCA, CMP, 1987-11, , 31346-7, 27538- 7 #### [facility] ([id number]) [address] [place] [address] 33644 Creatinine [Mass/Vol] 0.90 mg/dL Normal 0.70-1.20 [facility] Comment on above: Result Comment: METH OD TRACEABLE TO IDMS STANDARD Performed By: #### C ROBBIE BOSE, 1985-11, , 50466-9, 42570-6 #### [facility] ([id number]) [address] [place] [address] 21712 eGFR (CKD-EPI) NON-RACE DEPENDENT >90 Normal >59 [facility] Comment on above: Result Comment: Reported eGFR is based on the CKD-EPI 2020 equation that does not use a race coefficient. Performed By: #### C ROBBIE BOSE, 1987-11, , 93700-0, 14621-1 #### [facility] ([id number]) [address] [place] [address] 26926 Glucose [Mass/Vol] 127 mg/dL High 65-99 [facility] Comment on above: Performed By: #### C ROBBIE BOSE, 1987-11, , 78295-8, 45103- 7 #### [facility] ([id number]) [address] [place] [address] 94242 Potassium [Moles/Vol] 3.0 mmol/L Low 3.5-5.0 [facility] [facility] Comment on above: Performed By: #### C ROBBIE BOSE, 1985-11, , 58646-2, 62417- 7 #### [facility] ([id number]) [address] [place] [address] 74060 Protein [Mass/Vol] 8.4 g/dL High 6.0-8.0 [facility] Comment on above: Performed By: #### C ROBBIE BOSE, 1985-11, , 47460-3, 50647- 7 #### [facility] ([id number]) [address] [place] [address] 78094 Sodium [Moles/Vol] 132 mmol/L Low 134-146 [facility] Comment on above: Performed By: #### C ROBBIE BOSE, 1985-11, , 53217-9, 30874- 7 #### [facility] ([id number]) [address] [place] [address] Urea nitrogen [Mass/Vol] 10 mg/dL Normal 5-23 [facility] Comment on above: Performed By: #### C LIDYA, CMP, 1985-11, , 99667-4, 95272- 7 #### [facility] ([id number]) [address] [place] [address] 64619 CRP [Mass/Vol]on 12-08-2023 C REACTIVE PROTEIN 0.5 mg/dL Normal 0.000-0.744 [facility] Comment on above: Performed By: #### C LIDYA, ROBBIE, 1985-11, , 63357-2, 44086- 7 #### [facility] ([id number]) [address] [place] [address] BRAIN WO CONTon CT BRAIN WO CONT CT BRAIN WO CONT EXAM:CT BRAIN WO CONT INDICATION: Headache, new or worsening (Age >= 50y) COMPARISON: None TECHNIQUE: Standard noncontrast axial CT sections through the head. All CT scans at this facility use dose modulation, iterative reconstruction, and/or weight based dosing when appropriate to reduce radiation dose to as low as reasonably achievable. FINDINGS: Brain Parenchyma: No acute hemorrhage, cerebral edema, or acute cortical infarction. No mass effect, or midline shift. Ventricles and Sulci: Normal for age. Extra-Axial Spaces: No extra-axial fluid collection. Orbits, paranasal sinuses, midface structures, mastoid air cells: Mild polypoid mucosal thickening left maxillary sinus Cranium and extracranial soft tissues: Normal IMPRESSION: No acute or subacute intracranial abnormalities. Finalized by Sathish Medina on 12/08/2023 11:21 AM Normal [facility] Fibrin D-dimer DDU (PPP) [Ma ss/Vol]on 12-08-2023 D DIMER 150 ng/mL DDU Normal <255 [facility] Comment on above: Result Comment: Results <255 ng/mL DDU: The presence of a VTE can safely be excluded with a negative D-Dimer result and Wells score. A negative result doesn't exclude the possibility of DIC. The test be repeated along with other diagnostic tests if the patient's symptoms persist or worsen. [email or web address] Performed By: #### C ROBBIE BOSE, 1985-11, , 73157-1, 37622-5 #### [facility] ([id number]) [address] [place] [address] 68593 MAGNESIUMon 12-08-2023 Magnesium [Mass/Vol] 1.9 mg/dL Normal 1.8-2.6 [facility] Comment on above: Performed By: #### C ROBBIE BOSE, 1985-11, , 63423-2, 41343- 7 #### [facility] ([id number]) [address] [place] [address] 00785 Troponin I.cardiac High sens itivity method [Mass/Vol]on 12-08-2023 3 HOUR TROP I, HIGH SENSITIVITY 7 ng/L Normal <21 [facility] Comment on above: Performed By: #### C ROBBIE BOSE, 1985-11, , 62856-6, 24265- 7 #### [facility] ([id number]) [address] [place] [address] 68342 1 HOUR TROP I, HIGH SENSITIVITY 4 ng/L Normal <21 [facility] Comment on above: Performed By: #### 8 9579-7 #### [facility] ([id number]) [address] [place] [address] 59652 TROPONIN I, HIGH SENSITIVITY 3 ng/L Normal <21 [facility] Comment on above: Performed By: #### C ROBBIE BOSE, 1985-11, , 25331-2, 27540- 7 #### [facility] ([id number]) [address] [place] [address] 81851 URN MACROSCOPIC NURon 2023 BILIRUBIN KEELEY Negative Normal [facility] Comment on above: Performed By: #### C BCA, CMP, 1985-11, , 42417-4, 35452- 7 #### [facility] ([id number]) [address] [place] [address] 22932 BLOOD/HGB KEELEY Negative Normal NEG [facility] Comment on above: Performed By: #### C BCA, CMP, 1985-11, , 65084-9, 38546- 7 #### [facility] ([id number]) [address] [place] [address] 35197 GLUCOSE KEELEY Negative Normal [facility] Comment on above: Performed By: #### C BCA, CMP, 1985-11, , 20595-1, 12920- 7 #### [facility] ([id number]) [address] [place] [address] 18448 KETONES KEELEY Negative Normal [facility] Comment on above: Performed By: #### Paulette BCA, CMP, 1985-11, , 12988-7, 70555- 7 #### [facility] ([id number]) [address] [place] [address] 42891 LEUKOCYTE ESTERASE KEELEY Negative Normal NEG [facility] Comment on above: Performed By: #### C BCA, CMP, 1985-11, , 94812-3, 53436- 7 #### [facility] ([id number]) [address] [place] [address] 81313 NITRITE KEELEY Negative Normal [facility] Comment on above: Performed By: #### C BCA, CMP, 1985-11, , 26236-5, 33006- 7 #### [facility] ([id number]) [address] [place] [address] 35875 PH KEELEY 5.5 Normal 5.0-8.5 [facility] Comment on above: Performed By: #### C ROBBIE BOSE, 1985-11, , 28193-9, 35466- 7 #### [facility] ([id number]) [address] [place] [address] 75195 PROTEIN KEELEY Negative Normal NEG [facility] Comment on above: Performed By: #### C LIDYA, ROBBIE, 1985-11, , 97120-7, 96245- 7 #### [facility] ([id number]) [address] [place] [address] 33317 SPECIFIC GRAVITY KEELEY 1.010 Normal 1.003-1.035 [facility] Comment on above: Performed By: #### C LIDYA, ROBBIE, 1985-11, , 79003-0, 50575- 7 #### [facility] ([id number]) [address] [place] [address] 59984 UROBILINOGEN KEELEY 0.2 eu/dL Normal <1.1 [facility] Comment on above: Performed By: #### C LIDYA, ROBBIE, 1985-11, , 32280-3, 49969- 7 #### [facility] ([id number]) [address] [place] [address] 76447 XR CHEST 2 VWSon 12-08-2023 XR CHEST 2 VWS XR CHEST 2 VWS History: Dizziness. Lightheadedness. Presyncopal Exam/Technique: PA and lateral chest Comparison: None Findings: There is no evidence of active pulmonary or pleural disease. Cardiac and mediastinal contours are within normal limits. IMPRESSION: No evidence of active pulmonary disease demonstrated. Finalized by Rolando Alba MD on 12/08/2023 11:08 AM Normal [facility] Surgical Pathologyon 024 Surgical Pathology Normal [facility] Comment on above: Result Comment: [facility] [employer] [facility] Laboratory Medicine [address] [place] [address] Surgical Pathology Consultation Patient Name:ULISSES WILSON:1975 (Age: 47)Gender:MTaken:4Reported:08/28/2023hysician(s):Sathish De La Cruz D.O. ([phone])Copy To: Rec. #:[id number]: #[id number] Final Pathologic Diagnosis 1. Right posterior scalp lump, excision: Pilar cyst. 2. Left posterior scalp lump, excision: Pilar cyst. 3. Vertex of scalp, excision: Pilar cyst. Report Electronically Signed Out 08/28/2023Mulugeta Avila MD [place] [address], License number: [id number]. Clinical History Pilar cyst of scalp L72.11. Right posterior scalp lump. Gross Description 1. Received in formalin labeled [facility], right posterior scalp cyst is a pale-baig ovoid cystic structure, 0.5 x 0.4 x 0.4 cm. The specimen is inked black. The specimen is bisected to reveal a cystic structure filled with friable material. The specimen is entirely submitted in a single cassette. (1, ns, [id number],m2) DM. 2. Received in formalin labeled [facility], left posterior scalp cyst is a pale-baig ovoid cystic structure, 1.4 x 0.9 x 0.6 cm. The specimen is inked black. The specimen is serially sectioned to reveal a cystic structure filled with friable material. The specimen is entirely submitted in a single cassette. (1, ns, [id number],m2) DM. 3. Received in formalin labeled [facility], vertex of scalp cyst is a pale-baig ovoid cystic structure, 1.1 x 0.8 x 0.7 cm. The specimen is inked black. The specimen is trisected to reveal a cystic structure filled with friable material. The specimen is entirely submitted in a single cassette. (1, ns, [id number],m2) DM. dm/08/24/2023EAK Specimen(s) Received 1: Right posterior scalp lump 2: Left posterior scalp lump 3: Vertex of scalp Fee Codes(s): 1; 47498 2; 64065 3; 36885 XR ANKLE LT MIN 3 Von 2019 [...] by: STEVEN MCLAIN Date: 2020-03-03 14:27 Normal [facility] XR ANKLE LT MIN 3 VIEWSon XR ANKLE LT MIN 3 VIEWS Patient: ULISSES WILSON Exam Date: 08/12/2019 : 1975 Gender:M Ordering : DR. LISBET PuentesPNani Admission #: [id number] Family : Order #: [id number] CLICK HERE TO VIEW EXAM RADIOLOGY REPORT [...] Mclain M.D. on 08/12/2019 at 10:12 Normal [facility] Coding Summary.on 12-22-2017 Coding Summary. CODING DATE: 12/22/2017 FINAL [facility] STATUS: Home (Routine DC) PAYOR: Commercial Insurance [...] Lydia Najera Date Saved: 12/22/2017 07:33 am [facility] Vital Signs Date Time Vital Sign Value Performing Clinician Facility 04-29-2024 10:51-0400 Body height 177.8 cm Petrona Welshr TRACK EQUIPMENT OPERATOR Work Phone: [facility] 04-29-2024 10:51-0400 Body mass index (BMI) [Ratio] 34.01 kg/m2 Petrona Welshr TRACK EQUIPMENT OPERATOR Work Phone: [facility] 04-29-2024 10:51-0400 Body weight 107.5 kg Petrona Welshr TRACK EQUIPMENT OPERATOR Work Phone: [facility] 04-29-2024 10:51-0400 Diastolic blood pressure 96 mm[Hg] Petrona Welshr TRACK EQUIPMENT OPERATOR Work Phone: [facility] 04-29-2024 10:51-0400 Heart rate 77 /min Petrona Welshr TRACK EQUIPMENT OPERATOR Work Phone: [facility] 04-29-2024 10:51-0400 SaO2% (BldA) [Mass fraction] 97 % Petrona Welshr TRACK EQUIPMENT OPERATOR Work Phone: [facility] 04-29-2024 10:51-0400 Systolic blood pressure 168 mm[Hg] Petrona Welshr TRACK EQUIPMENT OPERATOR Work Phone: [facility] 08-30-2023 13:32-0500 Body height 180.3 cm Patricia Centeno PRIMER CHARGING TOOL SETTER-CABLE PLACER Work Phone: [facility] 08-30-2023 13:32-0500 Body mass index (BMI) [Ratio] 33.75 kg/m2 Patricia Centeno PRIMER CHARGING TOOL SETTER-CABLE PLACER Work Phone: [facility] 08-30-2023 13:32-0500 Body weight 109.77 kg Patricia ATKINS Work Phone: [facility] 08-23-2023 10:32-0500 Body height 180.3 cm Sathish De La Cruz DO Work Phone: [facility] 08-23-2023 10:32-0500 Body mass index (BMI) [Ratio] 33.84 kg/m2 Sathish De La Cruz DO Work Phone: [facility] 08-23-2023 10:32-0500 Body weight 110.04 kg Sathish De La Cruz DO Work Phone: [facility] 08-23-2023 10:32-0500 Diastolic blood pressure 92 mm[Hg] Sathish De La Cruz DO Work Phone: [facility] 08-23-2023 10:32-0500 Heart rate 95 /min Sathish De La Cruz Work Phone: [facility] 08-23-2023 10:32-0500 Systolic blood pressure 155 mm[Hg] Sathish De La Cruz DO Work Phone: [facility] 08-14-2023 08:38-0500 Body height 180.3 cm Natalia John TRACK EQUIPMENT OPERATOR Work Phone: [facility] 08-14-2023 08:38-0500 Body mass index (BMI) [Ratio] 34.48 kg/m2 Nataila Romahjayez TRACK EQUIPMENT OPERATOR Work Phone: [facility] 08-14-2023 08:38-0500 Body temperature 97.11 [degF] Natalia Romahjayez TRACK EQUIPMENT OPERATOR Work Phone: [facility] 08-14-2023 08:38-0500 Body weight 112.13 kg Natalia Romahjayez TRACK EQUIPMENT OPERATOR Work Phone: [facility] 08-14-2023 08:38-0500 Diastolic blood pressure 98 mm[Hg] Natalia Aichjayez TRACK EQUIPMENT OPERATOR Work Phone: [facility] 08-14-2023 08:38-0500 Heart rate 88 /min Natalia Aicestuardoz TRACK EQUIPMENT OPERATOR Work Phone: [facility] 08-14-2023 08:38-0500 Respiratory rate 18 /min Natalia Scarletholz TRACK EQUIPMENT OPERATOR Work Phone: [facility] 08-14-2023 08:38-0500 SaO2% (BldA) [Mass fraction] 98 % Natalia Scarletholz TRACK EQUIPMENT OPERATOR Work Phone: [facility] 08-14-2023 08:38-0500 Systolic blood pressure 150 mm[Hg] Natalia Scarletjayez TRACK EQUIPMENT OPERATOR Work Phone: [facility] Healthcare Encounters Encounter Date Encounter Type Care Provider Facility Start: 07-15-2024 End: 07-15-2024 ambulatory [facility] Start: 06-12-2024 End: 06-12-2024 ambulatory NATALIA AICHHOLZ Not Available Start: 04-29-2024 End: 04-29-2024 Bamboo flowsheet Petrona Oconnell TRACK EQUIPMENT OPERATOR Work Phone: [facility] Start: 04-29-2024 End: 04-29-2024 Bamboo flowsheet Petrona eHmor TRACK EQUIPMENT OPERATOR Work Phone: [facility] Start: 04-29-2024 End: 04-29-2024 Office outpatient visit 25 minutes Petrona Welshr TRACK EQUIPMENT OPERATOR Work Phone: [facility] Comment on above: JW (obstructive sle ep apnea) (Primary Dx); Hypoxia; Snoring; Insomnia, unspecified type Start: 04-29-2024 End: 04-29-2024 ambulatory PETRONA GILLMOR Not Available Start: 03-12-2024 End: 03-12-2024 ambulatory NATALIA AICHHOLZ Not Available Start: 02-05-2024 End: 02-05-2024 ambulatory NATALIA AICHHOLZ Not Available Start: 01-08-2024 End: 01-08-2024 ambulatory DA DENG Not Available Start: 12-11-2023 End: 12-11-[address] [place] [address] Start: 12-08-2023 End: 12-09-2023 Emergency department patient visit SATHISH MONSIVAIS [facility] Start: 10-17-2023 End: 10-17-2023 ambulatory NATALIA JOHN Not Available Start: 08-30-2023 End: 08-30-2023 ambulatory PATRICIADARRIN CENTENO [facility] Start: 08-30-2023 End: 08-30-2023 Postop follow up visit related to original px Patricia Centeno PRIMER CHARGING TOOL SETTER-CABLE PLACER Work Phone: [facility] Comment on above: Pilar cyst of scalp (Primary Dx) Start: 08-23-2023 End: 08-23-2023 ambulatory [facility] Start: 08-23-2023 End: 08-23-2023 ambulatory [facility] Start: 08-23-2023 End: 08-23-2023 Patient encounter procedure Sathish De La Cruz DO Work Phone: [facility] Comment on above: Pilar cyst of scalp (Primary Dx) Start: 08-14-2023 Bamboo flowsheet Natalia Aichholz TRACK EQUIPMENT OPERATOR Work Phone: [facility] Start: 08-14-2023 Bamboo flowsheet Natalia Aichholz TRACK EQUIPMENT OPERATOR Work Phone: [facility] Start: 08-14-2023 End: 08-14-2023 Office outpatient visit 25 minutes Natalia John TRACK EQUIPMENT OPERATOR Work Phone: [facility] Comment on above: Primary hypertension (CMS/HCC) (Primary Dx); JW (obstructive sleep apnea); Abnormal TSH Start: 08-14-2023 End: 08-14-2023 ambulatory NATALIA AICAugustineHOLZ Not Available Start: 08-02-2023 End: 08-02-2023 ambulatory [facility] Start: 08-02-2023 End: 08-02-2023 Office outpatient new 20 minutes Sathish De La Cruz DO Work Phone: [facility] Comment on above: Pilar cyst of scalp (Primary Dx); Skin tags, anus or rectum; History of hypertension Start: 07-13-2023 End: 07-13-2023 ambulatory NATALIA LOPEZ Not Available Start: 06-21-2023 End: 06-21-2023 ambulatory NATALIA JOHN Not Available Start: 03-10-2020 End: 04-14-[address] [facility] [address] [facility] Start: 03-03-2020 End: 03-04-2020 Patient encounter procedure [facility] Facility:[facility] Start: 09-03-2019 End: 09-03-2019 Patient encounter procedure [facility] Facility:[facility] Start: 08-26-2019 Encounter for other preprocedural examination [facility] Start: 08-22-2019 End: 08-23-2019 Patient encounter procedure [facility] Facility:[facility] Start: 08-12-2019 End: 08-13-2019 Patient encounter procedure [facility] Facility:[facility]1 Start: 12-11-2017 End: 12-12-2017 Ambulatory [place] Facility:[facility] Encounter for other preprocedural examination [facility] Plan of Treatment Date Care Activity Detail Author Start: 07-06-2026 Screening for malign ant neoplasm of colon [facility] Start: 10-24-2024 End: 10-24-2024 Patient encounter procedure 10/24/2024 10:40 AM EDT Office Visit [facility] [address] [place] [phone] Petrona Oconnell NP [address] [place] [address] [facility] Start: 08-23-2024 Adult BMI Screening Adult BMI Screen ing [facility] Start: 08-23-2024 Tobacco Screening Tobacco Screening [facility] Start: 06-12-2024 End: 06-12-2024 Patient encounter procedure 06/12/2024 8:40 AM EST Office Visit [facility] [address] [place] [address] Natalia Lopez NP [address] [place] [phone] [facility] Start: 04-29-2024 End: 04-29-2024 Patient encounter procedure 04/29/2024 10:40 AM EDT Office Visit [facility] [address] [place] [phone] Petrona Oconnell NP [address] [place], [place] Arrived [facility] Comment on above: Arrived Start: 08-30-2023 End: 08-30-2023 Patient encounter procedure 08/30/2023 1:15 PM EST Office Visit [facility] [address] [place] [phone] Patricia Centeno, PRIMER CHARGING TOOL SETTER[facility] [address] [place], [place] [phone] [facility] Start: 08-23-2023 End: 08-23-2023 Patient encounter procedure 08/23/2023 10:30 AM EST Office Visit [facility] [address] [place] [phone] Sathish De La Cruz, [address] [place], [place] [phone] [facility] Start: 08-14-2023 End: 08-14-2023 Patient encounter procedure 08/14/2023 8:40 AM EST [facility] [address] [place] [phone] Natalia Lopez NP [address] [place] [phone] Arrived [facility] Comment on above: Arrived Start: 03-10-2023 Influenza vaccination Influenza Vacc ine [facility] Start: 1996 DTaP,Tdap and Td Vaccines (1 - Tdap) DTaP,Tdap and Td Vaccines (1 - Tdap) [facility] [employer] [facility] Start: 10-09-1995 Adult BMI Follow Up Plan Adult BMI Follow Up Plan [facility] Start: 10-09-1995 Adult BMI Screening Adult BMI Screen ing [facility] Start: 1989 Depression Screening Depression Scre ening [facility] Start: 1989 Tobacco Screening Tobacco Screening [facility] Start: 1975 Screening for malign ant neoplasm of colon [facility] Start: 1977 Tobacco Counseling Tobacco Counselin g [facility] End: 08-22-2024 Surgical Pathology Surgical Pathology Pathology and Cytology Routine Pilar Cyst Of Scalp 1 Occurrences starting 08/23/2023 until 08/22/2024 [facility] Work Phone: Comment on above: 1 Occurrences starti ng 08/23/2023 until 08/22/2024 Payers Date Payer Category Payer Unknown [id number] 2023 Worker's Compensation [id number] 2015 Managed Care HMO (unspecified) [id number] 2015 Private Health Insurance MED MURILLO POS II [id number] 2015-Present [phone] [address] [place] [address] [id number] 1975 Unknown [id number] 2.16.840.1.374009.3.579.2. 593 1975 Unknown [id number] 2.16.840.1.099120.3.579.2. 593 1977 Unknown [id number] 2.16.840.1.639674.3.579.2. 593 1977 Unknown [id number] 2.16.840.1.848536.3.579.2. 59 1977 Unknown [id number] 2.16.840.1.007832.3.579.2. 593 1977 Unknown [id number] 2.16.840.1.459205.3.579.2. 1285 1977 Unknown [id number] 2.16.840.1.088919.3.579.2. 1285 1977 Unknown [id number] 2.16.840.1.742782.3.579.2. 1285 1977 Unknown [id number] 2.16.840.1.410675.3.579.2. 1285 1977 Unknown [id number] 2.16840.1.992615.3.579.2. 1285 1977 Unknown [id number] 2.16.840.1.371761.3.579.2. 1285 1977 Unknown [id number] 2.16840.1.604300.3.579.2. 1285 1977 Unknown [id number] 2.16840.1.725860.3.579.2. 1285 1977 Unknown [id number] 2.16.840.1.919002.3.579.2. 1258 1977 Unknown [id number] 2.16.840.1.852188.3.579.2. 1258 1977 Unknown [id number] 2.16.840.1.860731.3.579.2. 1258 1977 Unknown [id number] 2.16.840.1.534987.3.579.2. 1258 1977 Unknown [id number] 2.16.840.1.631948.3.579.2. 1258 1977 Unknown [id number] 2.16.840.1.489848.3.579.2. 1258 1977 Unknown [id number] 2.16.840.1.653195.3.579.2. 1258 1977 Unknown [id number] 2.16.840.1.926909.3.579.2. 1259 1977 Unknown [id number] 2.16.840.1.301937.3.579.2. 1259 1959 Private Health Insurance [id number] Social History Date Type Detail Facility Start: 08-02-2023 End: 02-05-2024 Tobacco smoking status NHIS Never smoked tobacco [facility] Start: 08-02-2023 End: 04-29-2024 Tobacco use and exposure User of smokeless tobacco [facility] Start: 07-12-2023 End: 08-02-2023 History of Social function [facility] Start: 07-12-2023 End: 08-02-2023 Tobacco use panel [facility] Childcare Unknown [facility] Start: 1975 Sex Assigned At Not on file P [facility] Start: 06-21-2023 Tobacco use and exposure Forme r smokeless tobacco user [facility] History of tobacco use Chews Tobacco [facility] Start: 07-13-2023 End: 04-29-2024 Alcohol intake Current drinker of alcohol (finding) [facility] Within the last year , have you been afraid of your partner or ex-partner? No [facility] Do you belong to any clubs or organizations such as moravian groups, unions, fraternal or athletic groups, or school groups? Yes [facility] Are you now , , , , never or living with a partner? [facility] How often to you hav e a drink containing alcohol? 2-3 time sa week [facility] How many standard dr inks containing alcohol do you have on a typical day? 5 or 6 [facility] How often do you hav e 6 or more drinks on 1 occasion? Weekly [facility] (I/We) worried wheth er (my/our) food would run out before (I/we) got money to buy more. Never true [facility] History of tobacco use Snuff User [facility] Start: 08-23-2023 End: 08-30-2023 Alcohol intake Ex-drinker (finding) [facility] Start: 04-29-2024 [facility] Clinical Notes 08-02-2023 to 07-15-2024 Patricia Centeno, PRIMER CHARGING TOOL SETTER-CABLE PLACER - 08/30/2023 1:15 PM Mery Kristel Romehermes, DO - 08/23/2023 10:30 AM ESTLisa Novakrima, TRACK EQUIPMENT OPERATOR - 08/14/2023 8:58 AM ESTLisa Romaaugustinerima, TRACK EQUIPMENT OPERATOR - 08/14/2023 8:58 AM EST Note Date & Type Note Facility 07-15-2024 Note [place] Note Reason for cardiology consult: Abnormal EKG. Chief Complaint: No complaint HPI: Ulisses Wilson is a 48 y.o. male with history of hypertension and sleep apnea on CPAP. 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 He denies any chest pain or shortness of breath at rest or with exertion. He denies dizziness, syncope or near syncope. He denies palpitations. Denies orthopnea or paroxysmal nocturnal dyspnea. Denies legs edema or legs discomfort on exertion He never been a smoker. He drinks small amount of alcohol socially. He denies any illicit drugs. He was diagnosed with sleep apnea about a year ago and he wears CPAP regularly. He reports that he checked his blood pressure at home and at work and it is usually in the 130/40 over 80 to mid 80 Regarding family history his mother had A-fib she is in her 70 Cardiology ROS: GENERAL: Denies fever, chills, night sweats, weight loss. HEENT: Denies changes in vision, photophobia, changes in hearing, epistaxis, oral bleeding. CARDIOVASCULAR: Denies chest pain, exertional dyspnea, orthopnea/PND, lower extremity edema, palpitations, lightheadedness/dizziness. RESPIRATORY: Denies SOB, coughing, wheezing GI: Denies abdominal pain, nausea/vomiting, heartburn, melena/hematochezia. RENAL: Denies dysuria, hematuria, flank pain. MSK: Denies muscle weakness/pain, arthralgias/joint pain. NEUROLOGIC: Denies LOC, weakness, numbness, headaches. SKIN: Denies abnormal rashes or bleeding. PSYCH: Denies significant anxiety, depression, sleep disturbances. Past Medical History He has a past medical history of Abnormal ECG, Hypertension, and Sleep apnea. Surgical History He has a past surgical history that includes Achilles tendon surgery. Social History He reports that he has never smoked. His smokeless tobacco use includes chew. He reports current alcohol use. He reports that he does not use drugs. Family History Family History Problem Relation Name Age of Onset Atrial fibrillation Mother Hypertension Brother Allergies Erythromycin, Penicillins, Sulfamethazine, and Amlodipine Medications Current Outpatient Medications: metoprolol succinate XL (Toprol-XL) 50 mg 24 hr tablet, Take 50 mg by mouth in the morning., Disp: , Rfl: Last Recorded Vitals Visit Vitals BP (!) 160/102 (BP Location: Right arm, Patient Position: Sitting) Pulse 85 Ht 1.778 m (5' 10 ) Wt 110 kg (242 lb) SpO2 97% BMI 34.72 kg/m??? Smoking Status Never BSA 2.33 m??? Physical Examination: GENERAL: alert and oriented x3, well developed, in no acute distress. HEAD: atraumatic, normocephalic. EYES: RUMA, EOMI. NECK: trachea midline, no JVD present, no carotid bruits present. CARDIAC: S1, S2 present. RRR. No murmur, rubs, or gallops. RESPIRATORY: CTAB, no increased effort of breathing, no rales, rhonchi, or wheezing. ABDOMEN: soft, nontender, nondistended. EXTREMITIES: no lower extremity edema, peripheral pulses are 2+ bilaterally. No rash/skin discoloration present. NEURO: strength/sensation equal and symmetric in bilateral upper and lower extremities. PSYCH: appropriate mood, affect, and judgement. Labs: 08/09/2023 HbA1c 5.3% TSH 4.3 mildly high, free T40.84 06/16/2023 White blood count 5.9, hemoglobin 15, hematocrit 43.7, platelets 191 Sodium 139, potassium 3.9, BUN 7, creatinine 0.93, GFR above 60, glucose 107, calcium 8.7 Total bilirubin 1, AST 40, ALT 81, alk phos 56, total protein 8, albumin 3.8 Triglyceride 198, cholesterol 214, LDL 116, HDL 59 Last Images: EKG 06/10/2024 showed normal sinus rhythm. Right axis deviation, and right bundle branch block. Right bundle branch block is new in comparison to EKG 12/08/2023 EKG 12/08/2023 showed normal sinus rhythm, normal EKG Assessment and Plan: Abnormal EKG showing right bundle branch block which is not new in comparison to prior EKG in November 2023. Patient is physically active and no symptoms Essential hypertension, on Toprol XL, it appears to be elevated today but the patient states that he watches it at home and is usually in the 130-140/80 to mid 80s. Mixed hyperlipidemia, mild, LDL cholesterol 116 and triglyceride 198 in June 2023. He has recent labs which she is bringing later Obesity BMI 34.7 kg/m??? Sleep apnea, on CPAP for about 1 year Plan: Continue current medications The patient was advised to check his blood pressure and if it is always above 130/80 to contact his family physician to get it under better control. He was advised regarding following low-salt diet I will obtain echocardiographic study to evaluate for underlying structural heart disease The patient was advised to continue with e (more content not included)... [facility] 08-30-2023 History of Present illness Narrative Images from the original note were not included. Subjective Ulisses Wilson is a 47 y.o. male status post excision of scalp cyst x3 on 08/23/2023. Doing well. He reports some pain. He denies any fevers or chills. Objective There were no vitals filed for this visit. Physical Exam Skin: General: Skin is warm and dry. Comments: Scalp incisions x3 clean, dry and intact. No signs of infection. Final Pathologic Diagnosis 1. Right posterior scalp lump, excision: Pilar cyst. 2. Left posterior scalp lump, excision: Pilar cyst. 3. Vertex of scalp, excision: Pilar cyst. Assessment Ulisses Wilson is a 47 y.o.male postop excision of scalp cyst x3. Sutures removed in office today. Plan Final pathology discussed and given to patient in office today. Follow-up as needed. Pilar cyst of scalp [L72.11] PATRICIA CENTENO, PRIMER CHARGING TOOL SETTER-CABLE PLACER [facility] [place] This note was created with the assistance of a speech recognition program. While intending to generate a timely document that accurately reflects the content of the visit, no guarantee can be provided that every grammatical or spelling mistake has been or will be identified or corrected. Thank you for your understanding. MILLY Winkler 08/30/23 1341 documented in this encounter [facility] 08-23-2023 History of Present illness Narrative Patient presents for excision of multiple cysts on the scalp. Risks benefits alternatives to procedure including infection bleeding recurrence of the cysts were explained to the patient he agreed. All areas were prepped and draped usual sterile fashion identified by the patient and a time-out was taken. 1% xylocaine with epinephrine was used anesthetize each lesion 1 on the right side of the posterior scalp 1 on the left side of the posterior scalp and 1 on the vertex of the scalp. A total of 6 cc of xylocaine with epinephrine was used anesthetize the lesions. The pilar cyst on the top of the scalp was excised by making a transverse incision and the cyst was at least 1.2 cm and was closed with 3-0 Vicryl suture in interrupted fashion subcutaneously and the skin was closed with 3-0 nylon suture in interrupted fashion. The pilar cyst on the right posterior scalp was excised by making an incision over that and it was approximately 0.75 cm and the wound was closed with 3-0 Vicryl suture in interrupted fashion subcutaneously and the skin was closed with 3-0 nylon suture. The pilar cyst on the left posterior scalp was excised by making an incision over that and it measured about 1.2 cm and the wound was closed with 3-0 Vicryl suture in interrupted fashion the skin was closed with 3-0 nylon suture. All specimens were sent to pathology. Patient was given routine wound care precautions and asked to take Tylenol or use ice p.r.n. pain and follow up in 1 week for suture removal with my staff. He may shower tomorrow and keep the wounds clean and dry. 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 documented in this encounter [facility] 08-14-2023 History of Present illness Narrative Associated Problem(s): Primary hypertension (CMS/HCC) Still not to goal, we will increase amlodipine to 10mg daily Fu in 8 weeks Likely will help BP also with use of PAP Associated Problem(s): JW (obstructive sleep apnea) Getting machine, and he will fu with sleep lab Associated Problem(s): Abnormal TSH We reviewed labs, at this time in about 6 months we will recheck labs Ulisses Wilson is a 47 y.o. male presents with chief complaint of No chief complaint on file. HPI: Here for recheck of his blood pressure and to review thyroid labs Since last visit also has sleep study and does have JW Is going to be getting his PAP soon, and then follows up with sleep lab No other complaints of at this time SUBJECTIVE: MEDICATIONS: Current Outpatient Medications Medication Instructions amLODIPine (NORVASC) 5 mg, Oral, Daily ALLERGIES: Allergies Allergen Reactions Erythromycin Other Throat swells Penicillins Other Throat swells Sulphadimidine [Sulfamethazine] Other Throat swells REVIEW OF SYMPTOMS: Review of Systems Constitutional: Negative. Negative for activity change, appetite change, chills, fatigue, fever and unexpected weight change. HENT: Positive for sore throat. Negative for congestion, ear pain, rhinorrhea and sinus pressure. Eyes: Negative. Negative for pain, discharge and visual disturbance. Respiratory: Negative. Negative for cough, chest tightness and shortness of breath. Cardiovascular: Negative. Negative for chest pain, palpitations and leg swelling. Gastrointestinal: Negative. Negative for abdominal pain, constipation, diarrhea, nausea and vomiting. Genitourinary: Negative. Negative for decreased urine volume, flank pain and hematuria. Musculoskeletal: Negative. Negative for arthralgias, back pain, joint swelling and myalgias. Skin: Negative for color change, rash and wound. Neurological: Negative. Negative for dizziness, tremors, weakness, numbness and headaches. Psychiatric/Behavioral: Negative. Negative for agitation, hallucinations, sleep disturbance and suicidal ideas. The patient is not nervous/anxious. Hematological: Negative. Negative for adenopathy. Does not bruise/bleed easily. Endocrine: Negative. Negative for polydipsia, polyphagia and polyuria. Allergic/Immunologic: Negative. Negative for environmental allergies. PAST MEDICAL HISTORY Past Medical History: Diagnosis Date Abnormal TSH 07/09/2023 Achilles tendon rupture, left, sequela Annual physical exam At low risk for fall Blood pressure elevated without history of HTN Colon cancer screening 06/21/2023 Elevated glucose 07/09/2023 Epicondylitis elbow, medial, left 06/21/2023 Left Achilles tendinitis Left ankle pain Left elbow pain 06/21/2023 Obesity with body mass index (BMI) of 30.0 to 39.9 Other fatigue 06/21/2023 Primary hypertension (CMS/HCC) 06/21/2023 Sebaceous cyst Past Surgical History: Procedure Laterality Date ANKLE SURGERY left achilles tendon repair family history is not on file. OBJECTIVE: Visit Vitals BP (!) 150/98 (BP Location: Left arm, Patient Position: Sitting, BP Cuff Size: Large adult long) Pulse 88 Temp 97.1 F (Temporal) Resp 18 Ht 5' 11 Wt 247 lb 3.2 oz SpO2 98% BMI 34.48 kg/m Smoking Status Never BSA 2.37 m Physical Exam Constitutional: Appearance: Normal appearance. HENT: Head: Normocephalic. Right Ear: External ear normal. Left Ear: External ear normal. Nose: Nose normal. Mouth/Throat: Mouth: Mucous membranes are moist. Pharynx: Oropharynx is clear. Eyes: Extraocular Movements: Extraocular movements intact. Conjunctiva/sclera: Conjunctivae normal. Cardiovascular: Rate and Rhythm: Normal rate and regular rhythm. Pulses: Normal pulses. Heart sounds: Normal heart sounds. Pulmonary: Effort: Pulmonary effort is normal. Breath sounds: Normal breath sounds. Abdominal: General: Bowel sounds are normal. Palpations: Abdomen is soft. Musculoskeletal: Cervical back: Neck supple. Skin: General: Skin is warm and dry. Capillary Refill: Capillary refill takes 2 to 3 seconds. Neurological: General: No focal deficit present. Mental Status: He is alert. Psychiatric: Mood and Affect: Mood normal. Behavior: Behavior normal. Thought Content: Thought content normal. Judgment: Judgment normal. ASSESSMENT AND PLAN: No follow-ups on file. Problem List Items Addressed This Visit Primary hypertension (CMS/HCC) - Primary Still not to goal, we will increase amlodipine to 10mg daily Fu in 8 weeks Likely will help BP also with use of PAP Relevant Medications amLODIPine (Norvasc) 10 MG tablet Abnormal TSH We reviewed labs, at this time in about 6 months we will recheck labs JW (obstructive sleep apnea) Getting machine, and he will fu with sleep lab documented in this encounter [facility] 08-02-2023 History of Present illness Narrative Images from the original note were not included. [facility] [address] [id number] CONSULT NOTE Ulisses Wilson 47 y.o. CHIEF [...] patient/family/caregiver Referring and communicating with other health pharmacy customer care specialist Pilar cyst of scalp [L72.11] Sathish De La Cruz DO This note was created with the assistance of a speech recognition program. While intending to generate a timely document that accurately reflects the content of the visit, no guarantee can be provided that every grammatical or spelling mistake has been or will be identified or corrected. Thank you for your understanding. documented in this encounter [facility] Evaluation note Diagnosis Pilar cyst of scalp- Primary Skin tags, anus or rectum Residual hemorrhoidal skin tags History of hypertension Personal history of other diseases of circulatory system [facility] Diagnosis Primary hypertension (CMS/HCC)- Primary Unspecified essential hypertension JW (obstructive sleep apnea) Obstructive sleep apnea (adult) (pediatric) Abnormal TSH documented in this encounter [facility]* Diagnosis Pilar cyst of scalp- Primary [facility] Diagnosis Pilar cyst of scalp- Primary [facility]* Diagnosis Primary hypertension (CMS/HCC)- Primary Unspecified essential hypertension Obesity with body mass index (BMI) of 30.0 to 39.9 Left elbow pain Pain in joint, upper arm Sebaceous cyst Other fatigue Epicondylitis elbow, medial, left Colon cancer screening Special screening for malignant neoplasms, colon Primary hypertension (CMS/HCC)- Primary Unspecified essential hypertension Abnormal TSH Elevated glucose Other abnormal glucose Obesity with body mass index (BMI) of 30.0 to 39.9 Primary hypertension (CMS/HCC)- Primary Unspecified essential hypertension JW (obstructive sleep apnea) Obstructive sleep apnea (adult) (pediatric) Abnormal TSH Primary hypertension (CMS/HCC)- Primary Unspecified essential hypertension JW (obstructive sleep apnea) Obstructive sleep apnea (adult) (pediatric) Obesity with body mass index (BMI) of 30.0 to 39.9 Primary hypertension (CMS/HCC)- Primary Unspecified essential hypertension Morbid (severe) obesity due to excess calories (CMS/HCC) Obstructive sleep apnea (adult) (pediatric) Body mass index (BMI) 35.0-35.9, adult Elevated liver enzymes Other nonspecific abnormal serum enzyme levels Abnormal TSH Bilateral lower extremity edema Primary hypertension (CMS/HCC)- Primary Unspecified essential hypertension Obstructive sleep apnea (adult) (pediatric) Obesity with body mass index (BMI) of 30.0 to 39.9 JW (obstructive sleep apnea)- Primary Obstructive sleep apnea (adult) (pediatric) Hypoxia Hypoxemia Snoring Other dyspnea and respiratory abnormality Insomnia, unspecified type documented in this encounter [facility] HealthcareInstructionsNot on filedocumented in this encounterProC[facility] SystemInstructionsNot on filedocumented in this [facility] Summary Purpose Family History No Family [...] section and content) DATE CREATED AUTHOR 12/25/2017 [facility] DATE CREATED AUTHOR AUTHOR'S ORGANIZ ATION 04/15/2020 [facility] DATE CREATED AUTHOR AUTHOR'S ORGANIZ ATION 09/07/2023 [facility] DATE CREATED AUTHOR AUTHOR'S ORGANIZ ATION 12/12/2023 [facility] DATE CREATED AUTHOR AUTHOR'S ORGANIZ ATION 06/14/2024 [facility] DATE CREATED AUTHOR AUTHOR'S ORGANIZ ATION 07/21/2024 [facility] Reason for Visit (unrecogniz ed section and content) Reason Comments Cyst SEBACEOUS CYST, TOP OF HEAD, LEFT& RIGHT TOWARDS BACK OF HEAD, REFERRED BY NATALIA LOPEZ NP Reason Comments Cyst Excision of multiple pilar cysts of scalp Reason Comments POST-OP VISIT SUTURE REMOVAL, EXCI KELY OF MULTIPLE SCALP CYSTS ON 08/23/23 Reason Comments Sleep Apnea Care Teams (unrecognized sec tion and content) Executive Administrative Asst Relationship Specialty Start Date End Date Natalia Lopez, PRIMER CHARGING TOOL SETTER-CABLE PLACER [address] [place] [phone] PCP - General Nurse Practitioner 06/21/23 Executive Administrative Asst Relationship Specialty Start Date End Date Chinedu Sykes MD [address] [place] [phone] PCP - General Family Medicine 08/14/23 Executive Administrative Asst Relationship Specialty Start Date End Date Chinedu Sykes MD [address] [place] [phone] PCP - [facility] Medicine 08/14/23 Executive Administrative Asst Relationship Specialty Start Date End Date Natalia Lopez, PRIMER CHARGING TOOL SETTER-[facility] [address] [place] [phone] PCP - General Nurse Practitioner 06/21/23 Executive Administrative Asst Relationship Specialty Start Date End Date Chinedu Sykes MD [address] [place] [phone] PCP - General Family Medicine 08/14/23 Executive Administrative Asst Relationship Specialty Start Date End Date Chinedu Sykes MD [address] [place] [phone] PCP - General Family Medicine 08/14/23 FOR RECORDS PERTAINING TO PATIENTS WHO ARE [...] BE BASED ON THE PRIMARY CLINICAL RECORDS. [facility] [facility]. provides no warranty or guarantee of the accuracy or completeness of information in this document.
== END 2024-08-08 14:37 | disposition home or self-care (01) ==
LOC: CARD 14:36
PROVIDERS: PCP Nurse Practitioner; Visit Provider Internal Medicine Cardiovascular Disease
DX: R94.31 Abnormal electrocardiogram [ECG] [EKG] (principal)
CPT/HCPCS: 93306

== ENCOUNTER 2025-04-09 14:15 | Outpatient (OUT) | payer OTHER, SELFPAY ==
--- OUTSIDE RECORDS SUMMARY | 2025-04-09 14:17 | XMS_ITS | Clinical Summary ---
Author Organization [employer] tem Address [id number] [address] [place] [address] Care Team Providers Care Slubber Machine Operator Name Role Phone RomaaugustinerimaNatalia Darlene TUCKER-REHABILITATION CONSTRUCTION SPECIALIST Primary Care Provider Allergies Active Allergy Reactions Criticality Noted Date Comments Erythromycin Other (See Comments) High 06/21/2023 Throat swells Penicillins Other (See Comments) High 06/21/2023 Throat swells Sulfamethazine Other (See Comments) High 06/21/2023 Throat swells Medications multivit-min/earlene rosanne fumarate (MULTI VITAMIN ORAL) Take by mouth. Active amLODIPine (NORVASC) 10 mg tablet Take 1 tablet (10 mg total) by mouth in the morning. Active Active Problems No known active problems Family History Medical History Relation Name Comments Vision loss Brother 1 Hypertension Brother 2 Stroke Father Diabetes Maternal Aunt Cancer Maternal Grandmother Diabetes Mother Hypertension Mother Cancer Paternal Grandmother Relation Name Status Comments Brother 1 Alive Brother 2 Alive Father Alive Maternal Aunt Maternal Grandmother Mother Alive Paternal Grandmother Social History Tobacco Use Types Packs/Day Years Used Date Smoking Tobacco: Never Smokeless Tobacco: Current Snuff Tobacco Cessation:Ready to Q uit: Not Asked; Counseling Given: Not Answered Alcohol Use Standard Drinks/Week Comments Yes 0 (1 standard drink = 0.6 oz pur e alcohol) occasionally Childcare Answer Date Recorded Childcare Unknown 12/19/2018 Employment Answer Date Recorded Employment Unknown 12/19/2018 Hunger Screening Answer Date Recorded Within the past 12 months we worried whether our food would run out before we got money to buy more. Never True 12/08/2023 Within the past 12 months th e food we bought just didn't last and we didn't have money to get more. Never True 12/08/2023 Purpose - Life Answer Date Recorded Purpose and direction in life Unknown Sex and Gender Information Value Date Recorded Sex Assigned at Not on file Legal Sex Male 11:41 AM EDT Gender Identity Not on file Sexual Orientation Not on file Last Filed Vital Signs Vital Sign Reading Time Taken Comments Blood Pressure 129/85 12/08/2023 2:15 PM EDT Pulse 89 12/08/2023 2:15 PM EDT Temperature 36.9 C (98.4 F) 12/08/2023 10:25 AM EDT Respiratory Rate 13 12/08/2023 2:15 PM EDT Oxygen Saturation 93% 12/08/2023 2:15 PM EDT Inhaled Oxygen Concentration - - Weight 107.5 kg (237 lb) 12/08/2023 10:25 AM EDT Height 177.8 cm (5' 10 ) 12/08/2023 10:25 AM EDT Body Mass Index 34.01 12/08/2023 10:25 AM EDT Plan of Treatment Health Maintenance Due Date Last Done Comments Depression Screening 1989 DTaP,Tdap and Td Vaccines (1 - Tdap) 1996 Adult BMI Screening 12/07/2024 12/08/2023 Tobacco Screening 12/07/2024 12/08/2023 Influenza Vaccine 03/10/2025 Medical Devices Not on file Insurance [employer] Care Teams Slubber Machine Operator Relationship Specialty Start Date End Date Natalia Lopez APRN-REHABILITATION CONSTRUCTION SPECIALIST PCP - General Nurse Practitioner 06/21/23
--- OUTSIDE RECORDS SUMMARY | 2025-04-09 14:17 | XMS_ITS | Clinical Summary ---
Author Organization [facility] Address [address] [place] [address] Care Team Providers Care Analyst Sales Name Role Phone Chinedu Correa MD Primary Care Provider [phone] Allergies Active Allergy Reactions Criticality Noted Date Comments Amlodipine Rash Low 07/15/2024 Erythromycin Other High 06/21/2023 Throat swells Penicillins Other High 06/21/2023 Throat swells Sulfamethazine Other High 06/21/2023 Throat swells Medications metoprolol succinate XL (Toprol-XL) 50 mg 24 hr tablet Take 50 mg by mouth in the morning. 06/12/2024 Active Active Problems Problem Noted Date Diagnosed Date Abnormal EKG 06/12/2024 Mixed hyperlipidemia 06/12/2024 Bilateral lower extremity edema 02/05/2024 Elevated liver enzymes 01/15/2024 Obstructive sleep apnea (adult) (pediatric) 07/10 Overview (07/15/2024): >>OVERVIEW FOR JW (OBSTRUCTIVE SLEEP APNEA) WRITTEN ON 07/19/2023 11:52 AM BY ANAHI DEJESUS NP Sleep study: 07/12/2023: AHI 14, and O2sat 80% Abnormal TSH 07/09/2023 Elevated glucose 07/09/2023 Achilles tendon rupture, left, sequela Colon cancer screening 06/21/2023 Obesity with body mass index (BMI) of 30.0 to 39 .9 06/21/2023 Other fatigue 06/21/2023 Primary hypertension 06/21/2023 Resolved Problems Problem Noted Date Diagnosed Date Resolved Date Morbid (severe) obesity due to excess calories 01/15/2024 07/15/2024 Family History Medical History Relation Name Comments Hypertension Brother Atrial fibrillation Mother Relation Name Status Comments Brother Mother Social History Tobacco Use Types Packs/Day Years Used Date Smoking Tobacco: Never Smokeless Tobacco: Current Chew Tobacco Cessation:Ready to Q uit: Not Asked; Counseling Given: Not Answered Alcohol Use Standard Drinks/Week Comments Yes 0 (1 standard drink = 0.6 oz pur e alcohol) occasionally Sex and Gender Information Value Date Recorded Sex Assigned at Not on file Legal Sex Male 3:12 PM EST Gender Identity Not on file Sexual Orientation Not on file Last Filed Vital Signs Vital Sign Reading Time Taken Comments Blood Pressure 160/102 07/15/2024 10:16 AM EST Pulse 85 07/15/2024 10:16 AM EST Temperature - - Respiratory Rate - - Oxygen Saturation 97% 07/15/2024 10:16 AM EST Inhaled Oxygen Concentration - - Weight 110 kg (242 lb) 07/15/2024 10:16 AM EST Height 177.8 cm (5' 10 ) 07/15/2024 10:16 AM EST Body Mass Index 34.72 07/15/2024 10:16 AM EST Plan of Treatment Health Maintenance Due Date Last Done Comments CT Colonography 1977 Colonoscopy 1977 FOBT 1977 Sigmoidoscopy 1977 Depression Screening 1989 Hepatitis B Vaccines (1 of 3 - 19+ 3-dose series) 1996 Adult Tetanus 10/09/1999 FIT 07/06/2024 07/06/2023 COVID-19 Vaccine ( - 2023-2 5 season) 2025 Influenza Vaccine (#1) 2025 Colorectal Cancer Screening 07/06/2026 FIT-DNA 07/06/2026 07/06/2023 Zoster Vaccines (1 of 2) 10/09/2027 HIB Vaccines Aged Out No longer eligi ble based on patient's age to complete this topic HPV Vaccines Aged Out No longer eligi ble based on patient's age to complete this topic IPV Vaccines Aged Out No longer eligi ble based on patient's age to complete this topic Meningococcal B Vaccine Aged Out No l onger eligible based on patient's age to complete this topic Meningococcal Vaccine Aged Out No pan maryuri eligible based on patient's age to complete this topic Pneumococcal Vaccine: Pediat rics (0 to 5 Years) and At-Risk Patients (6 to 64 Years) Aged Out No longer eligi ble based on patient's age to complete this topic Rotavirus Vaccines Aged Out No longer eligible based on patient's age to complete this topic Insurance [employer] Care Teams Analyst Sales Relationship Specialty Start Date End Date Chinedu Correa MD [address] [place] [address] PCP - General Family Medicine 07/15/24
--- OUTSIDE RECORDS SUMMARY | 2025-04-09 14:17 | XMS_ITS | Clinical Summary ---
Author Organization [facility] Address [address] [place] [address] Care Team Providers Care Devulcanizer Charger Name Role Phone Chinedu Correa MD Primary Care Provider [phone] Allergies Active Allergy Reactions Criticality Noted Date Comments Amlodipine Rash Low 07/15/2024 Erythromycin Other High 06/21/2023 Throat swells Penicillins Other High 06/21/2023 Throat swells Sulfamethazine Other High 06/21/2023 Throat swells Medications metoprolol succinate XL (Toprol XL) 100 MG 24 hr tabletIndications :Primary hypertension Take 1 tablet (100 mg) by mouth Daily Do not crush or chew. 90 tablet 1 02/13/2025 05/14/20 25 Active Active Problems Problem Noted Date Diagnosed Date Pulmonary hypertension, unspecified 12/12/2024 Assessment & Plan (12/12/2024 6:08 AM EDT): Noted on ECHO findings Generalized anxiety disorder with panic attacks 12/12/2024 Assessment & Plan (12/12/2024 9:08 AM EDT): Does not want meds Recommend deep breathing, counseling (if he chooses will let me know), we discussed how triggers (job, mother's health etc) influence as well Will reach out should he decide to need meds Mixed hyperlipidemia 06/12/2024 Assessment & Plan (06/12/2024 6:29 AM EST): Does not take statin therapy Encounter for adult wellness visit 06/12/2024 Assessment & Plan (06/12/2024 6:30 AM EST): Reviewed Ht/Wt/BMI Recommend eye exam yearly Recommend dental exams twice a year Balance work/leisure activities Exercises is recommended most days of the week (appropriate as chronic conditions allow) Follow up yearly and prn Abnormal EKG 06/12/2024 Assessment & Plan (06/12/2024 9:37 AM EST): Had EKG as part of his work physical, appears to have RBB and some non specific ST changes and T wave inversion No chest pain/pressure Family hx CAD: no Is different compared to his ER EKG from [facility] in 11/30 Will refer to cardiology Bilateral lower extremity edema 02/05/2024 Assessment & Plan (06/12/2024 9:38 AM EST): Resolved after stopping amlodipine Assessment & Plan (02/05/2024 9:20 AM EDT): Secondary to his use of CCB Will stop CCB and start BB Fu in 6 weeks see if swelling better Elevated liver enzymes 01/15/2024 Assessment & Plan (02/05/2024 9:18 AM EDT): Would prefer to hold on getting any labs No abd complaint, no jaundice as well Likely secondary to dehyration and he is feeling fine now Class 1 obesity due to exces s calories without serious comorbidity in adult 01/15/2024 Assessment & Plan (12/12/2024 6:08 AM EDT): Discussed with patient their BMI (actual, verses recommended). We have also discussed lifestyle modifications: attempts to perform physical activity as chronic conditions allow, also to monitor dietary intake: increasing protein/fruits/veggies and lowering carb intake (unless contraindicated). Limit sodas, juices, and sugary drinks. BMI does not take into account muscular status of this patient Assessment & Plan (09/10/2024 6:12 AM EST): Discussed with patient their BMI (actual, verses recommended). We have also discussed lifestyle modifications: attempts to perform physical activity as chronic conditions allow, also to monitor dietary intake: increasing protein/fruits/veggies and lowering carb intake (unless contraindicated). Limit sodas, juices, and sugary drinks. BMI does not take into account muscular status of this patient Assessment & Plan (06/12/2024 6:28 AM EST): Discussed with patient their BMI (actual, verses recommended). We have also discussed lifestyle modifications: attempts to perform physical activity as chronic conditions allow, also to monitor dietary intake: increasing protein/fruits/veggies and lowering carb intake (unless contraindicated). Limit sodas, juices, and sugary drinks. BMI does not take into account muscular status of this patient Obstructive sleep apnea (adult) (pediatric) 07/10 Overview (02/05/2024): >>OVERVIEW FOR JW (OBSTRUCTIVE SLEEP APNEA) WRITTEN ON 07/19/2023 11:52 AM BY NATALIA LOPEZ NP Sleep study: 07/12/2023: AHI 14, and O2sat 80% Assessment & Plan (12/12/2024 9:06 AM EDT): You have a diagnosis of obstructive sleep apnea. It is recommended that you wear your PAP device any time while in bed sleeping. Not using the PAP device can increase your risk of elevated/uncontrolled high blood pressure, atrial fibrillation, heart attack, stroke, or sudden . Compliance with PAP: not nightly use, occ How many hours of use per night: 4 max Do you feel more refreshed in the morning: no Company that supplies your machine and tubing/filters etc: [employer] Doctor that manages your JW: Hayden Oconnell [employer]ING HANDIC[employer] I have reviewed his last notes with neurology/sleep med from 11/07/24 Possibly looking into an oral appliance Assessment & Plan (09/10/2024 9:30 AM EST): You have a diagnosis of obstructive sleep apnea. It is recommended that you wear your PAP device any time while in bed sleeping. Not using the PAP device can increase your risk of elevated/uncontrolled high blood pressure, atrial fibrillation, heart attack, stroke, or sudden . Compliance with PAP: not nightly use How many hours of use per night: 4 Do you feel more refreshed in the morning: yes Company that supplies your machine and tubing/filters etc: [employer] Doctor that manages your JW: Hayden Oconnell NP Assessment & Plan (06/12/2024 9:37 AM EST): Uses PAP Compliance: 4 hours per day Follows with sleep med provider Assessment & Plan (03/12/2024 9:18 AM EDT): Doing much better with PAP about 6 hours at night Fu in 3 months Assessment & Plan (02/05/2024 9:16 AM EDT): Will see about oral appliance since he cannot tolerate mask Assessment & Plan (02/05/2024 7:05 AM EDT): >>ASSESSMENT AND PLAN FOR JW (OBSTRUCTIVE SLEEP APNEA) WRITTEN ON 08/14/2023 8:58 AM BY NATALIA LOPEZ NP Getting machine, and he will fu with sleep lab Assessment & Plan (02/05/2024 7:05 AM EDT): >>ASSESSMENT AND PLAN FOR JW (OBSTRUCTIVE SLEEP APNEA) WRITTEN ON 10/17/2023 10:12 AM BY NATALIA LOPEZ, [employer]ESS [employer] HANDIC[employer]PER Has had PAP supplies and machine since end august Is going to be following up with sleep medicine, encouraged to keep working at this Fu in 3months Elevated glucose 07/09/2023 Assessment & Plan (07/13/2023 9:37 AM EST): A1c test about a week before next appt Order given Abnormal TSH 07/09/2023 Assessment & Plan (02/05/2024 9:19 AM EDT): Prefers to only check thyroid labs once a year Assessment & Plan (08/14/2023 8:57 AM EST): We reviewed labs, at this time in about 6 months we will recheck labs Assessment & Plan (07/13/2023 9:37 AM EST): Recheck thyroid about a week prior to next appt Achilles tendon rupture, left, sequela 3 Obesity with body mass index (BMI) of 30.0 to 39 .9 06/21/2023 Primary hypertension 06/21/2023 Assessment & Plan (12/12/2024 9:07 AM EDT): Please check blood pressure daily and record DASH diet Limit caffeine Take medication as directed Contact office if chest pain, pressure, dizziness, shortness of breath, swelling legs Recommend slow position changes Current medication: Metoprolol XL went ahead an increased to 100 BP checks outside of the office: 130-140 / 80's Assessment & Plan (09/10/2024 9:31 AM EST): Please check blood pressure daily and record DASH diet Limit caffeine Take medication as directed Contact office if chest pain, pressure, dizziness, shortness of breath, swelling legs Recommend slow position changes Current medication: Metoprolol XL BP checks outside of the office: less than 140/90 We will try increasing his toprol to 75mg daily, fu in 3 months His b brit does cause some degree of ED We did discuss adding losartan but he does not want to have a new blood pressure pill at this time Assessment & Plan (06/12/2024 9:37 AM EST): Please check blood pressure daily and record DASH diet Limit caffeine Take medication as directed Contact office if chest pain, pressure, dizziness, shortness of breath, swelling legs Recommend slow position changes Current medication: Metoprolol XL BP checks outside of the office: less than 140/90 Assessment & Plan (03/12/2024 9:18 AM EDT): Tolerating Toprol Xl 25mg daily No changes in med dose Fu in 3 months Assessment & Plan (02/05/2024 9:17 AM EDT): Stop amlodipine and trial toprol XL 50mg Fu in 6 weeks will recheck in office in 6 weeks Assessment & Plan (10/17/2023 10:15 AM EDT): Still not at goal while in office, however I do think he has some degree for white coat hypertension 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, 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 and reads are 130-80's He does admit last night he did not sleep well, and has had caffeine this morning as well I also discussed with him about possible reduction in amlodipine dose d/t swelling and add another medication He declines this and would rather just cont amlodipine dose and manage with the swelling Of note his lower legs are not swollen today Fu in 3 months, cont with out of office bp checks as well Assessment & Plan (08/14/2023 8:58 AM EST): Still not to goal, we will increase amlodipine to 10mg daily Fu in 8 weeks Likely will help BP also with use of PAP Assessment & Plan (07/13/2023 9:36 AM EST): At this time we will keep dose of amlodipine and fu in 4 weeks Had sleep study last night No further titration until we see what that shows Assessment & Plan (06/21/2023 10:10 AM EST): Check labs Start meds Likely JW contributing to this as well Fu in 4 weeks Low salt diet, avoid NSAIDs and decongestants Other fatigue 06/21/2023 Colon cancer screening 06/21/2023 Resolved Problems Problem Noted Date Diagnosed Date Resolved Date JW (obstructive sleep apnea) 04/17/2024 06/12/2024 Body mass index (BMI) 35.0-35.9, adult 01/15/2024 06/12/2024 At low risk for fall 06/21/2023 024 Blood pressure elevated with out history of HTN 06/21/2023 08/14/2023 Left Achilles tendinitis 06/21/202310/2023 Left ankle pain 06/21/2023 06/12/2024 Sebaceous cyst 06/21/2023 06/12/2024 Assessment & Plan (06/21/2023 9:38 AM EST): Needs a referral for removal would like to see Grillis Not painful Left elbow pain 06/21/2023 06/21/2023 Epicondylitis elbow, medial, left 06/21/2023 06/12/2024 Assessment & Plan (06/21/2023 10:10 AM EST): Hand out on stretching exercises Encounters Date Type Department Care Team Description 02/13/2025 Refill [facility] [address] [place] [phone] Natalia Lopez NP Primary hypertension 02/13/2025 Telephone [facility] [address] [place] [id number] Natalia Lopez NP 01/13/2025 [facility] [address] [place] [id number] Natalia Lopez NP from Last 3 Months Social History Tobacco Use Types Packs/Day Years Used Date Smoking Tobacco: Every Day Smokeless Tobacco: Current Snuff, Chew Tobacco Cessation:Ready to Q uit: Not Asked; Counseling Given: Not Answered Alcohol Use Standard Drinks/Week Comments Yes 6 (1 standard drink = 0.6 oz pur e alcohol) Humiliation, Afraid, Rape, and Kick questionnair e Answer Date Recorded Within the last year, have y ou been afraid of your partner or ex-partner? No 07/12/2023 Within the last year, have y ou been humiliated or emotionally abused in other ways by your partner or ex-partner? No Within the last year, have y ou been kicked, hit, slapped, or otherwise physically hurt by your partner or ex-partner? No 07/12/2023 Within the last year, have y ou been raped or forced to have any kind of sexual activity by your partner or ex-partner? No 07/12/2023 Social Connection and Isolat ion Panel [NHANES] Answer Date Recorded In a typical week, how many times do you talk on the phone with family, friends, or neighbors? More than three times a week 07/12/2023 How often do you get togethe r with friends or relatives? Once a week 07/12/2023 How often do you attend chur ch or moravian services? 1 to 4 times per year 07/12/2023 Do you belong to any clubs o r organizations such as taoist groups, unions, fraternal or athletic groups, or school groups? Yes 07/12/2023 How often do you attend meet ings of the clubs or organizations you belong to? 1 to 4 times per year 07/12/2023 Are you , , di vorced, , never , or living with a partner? 07/12/2023 AUDIT-C Answer Date Recorded Q1: How often do you have a drink containing alc ohol? 2-3 times a week 07/12/2023 Q2: How many drinks containi ng alcohol do you have on a typical day when you are drinking? 5 or 6 07/12/2023 Q3: How often do you have si x or more drinks on one occasion? Weekly 07/12/2023 Overall Financial Resource Strain (CARDIA) Answe r Date Recorded How hard is it for you to pa y for the very basics like food, housing, medical care, and heating? Not hard at all 07/12/2023 PHQ-2 Answer Date Recorded Patient Health Questionnaire-2 Score 0 08/14/2023 [facility] - Occupational Stress Questionnaire Answer Date Recorded Do you feel stress - tense, restless, nervous, or anxious, or unable to sleep at night because your mind is troubled all the time - these days? Patient declined 07/12/2023 Exercise Vital Sign Answer Date Recorde d On average, how many days pe r week do you engage in moderate to strenuous exercise (like a brisk walk)? Patient declined On average, how many minutes do you engage in exercise at this level? Patient declined 07/12/2023 Hunger Vital Sign Answer Date Recorded Within the past 12 months, y ou worried that your food would run out before you got the money to buy more. Never true 07/12/19 24 Within the past 12 months, t he food you bought just didn't last and you didn't have money to get more. Never true 07/12/2023 PRAPARE - Transportation Answer Date Re corded In the past 12 months, has l ack of transportation kept you from medical appointments or from getting medications? No 09/2023 In the past 12 months, has l ack of transportation kept you from meetings, work, or from getting things needed for daily living? No 07/12/2023 Housing Stability Vital Sign Answer Robb e Recorded In the last 12 months, was t here a time when you were not able to pay the mortgage or rent on time? No 07/12/2023 In the last 12 months, how many places have you lived? 1 07/12/2023 In the last 12 months, was t here a time when you did not have a steady place to sleep or slept in a penitentiary (including now)? No 07/12/2023 Sex and Gender Information Value Date Recorded Sex Assigned at Not on file Legal Sex Male 8:47 AM EST Gender Identity Not on file Sexual Orientation Not on file Last Filed Vital Signs Vital Sign Reading Time Taken Comments Blood Pressure 154/94 12/12/2024 9:02 AM EDT Pulse 85 12/12/2024 8:32 AM EDT Temperature 36.7 C (98.1 F) 12/12/2024 8:32 AM EDT Respiratory Rate 18 12/12/2024 8:32 AM EDT Oxygen Saturation 99% 12/12/2024 8:32 AM EDT Inhaled Oxygen Concentration - - Weight 109 kg (239 lb 3.2 oz) 12/12/2024 8:32 AM EDT Height 177.8 cm (5' 10 ) 11/07/2024 8:38 AM EDT Body Mass Index 34.32 11/07/2024 8:38 AM EDT Plan of Treatment Health Maintenance Due Date Last Done Comments CT Colonography 1977 Colonoscopy 1977 FIT 1977 FOBT 1977 Sigmoidoscopy 1977 Colorectal Cancer Screening 07/06/2026 FIT-DNA 07/06/2026 07/06/2023 Influenza Vaccine Discontinued Procedures Procedure Name Priority Date/Time Associated Diagnosis Comments LAB COLOGUARD COLON CANCER SCREEN Routine 07/06/2023 7:30 AM EST Colon cancer screening from Last 3 Months or Most Recently Relevant to Health Maintenance Results * Cologuard?? colon cancer screening (07/06/2023 7:30 AM EST) NONINV COLON CA DNA+OCC BLD SCRN STL-IMP Negative Negative 07/12/2023 10:01 AM EST [facility] (CLIA #:[id number]) Comment: NEGATIVE TEST RESULT. A negative Cologuard result indicates a low likelihood that a colorectal cancer (CRC) or advanced adenoma (adenomatous polyps with more advanced pre-malignant features) is present. The chance that a person with a negative Cologuard test has a colorectal cancer is less than 1 in 1500 (negative predictive value >99.9%) or has an advanced adenoma is less than 5.3% (negative predictive value 94.7%). These data are based on a prospective cross-sectional study of 10,000 individuals at average risk for colorectal cancer who were screened with both Cologuard and colonoscopy. (Edith Hope. et al, N Engl J Med 2014;370(14):7055-9167) The normal value (reference range) for this assay is negative. COLOGUARD RE-SCREENING RECOMMENDATION: Periodic colorectal cancer screening is an important part of preventive healthcare for asymptomatic individuals at average risk for colorectal cancer. Following a negative Cologuard result, the [place] [employer] and U.S. Multi-Society Task Force screening guidelines recommend a Cologuard re-screening interval of 3 years. References: [place] [employer] Guideline for Colorectal Cancer Screening: https://www.cancer.org/cancer/gfwlj-lydpen-brtght/aogoyqaaf-zmlksobxb-txikrnv/ac s-rec ommendations.html.; Fito MAST, James CR, Lionel ColonK, Colorectal Cancer Screening: Recommendations for Physicians and Patients from the U.S. Multi-Society Task Force on Colorectal Cancer Screening , Am J Gastroenterology 2017; 112:5619-3238. TEST DESCRIPTION: Composite algorithmic analysis of stool DNA-biomarkers with hemoglobin immunoassay. Quantitative values of individual biomarkers are not reportable and are not associated with individual biomarker result reference ranges. Cologuard is intended for colorectal cancer screening of adults of either sex, 45 years or older, who are at average-risk for colorectal cancer (CRC). Cologuard has been approved for use by the U.S. FDA. The performance of Cologuard was established in a cross sectional study of average-risk adults aged 50-84. Cologuard performance in patients ages 45 to 49 years was estimated by sub-group analysis of near-age groups. Colonoscopies performed for a positive result may find as the most clinically significant lesion: colorectal cancer [4.0%], advanced adenoma (including sessile serrated polyps greater than or equal to 1cm diameter) [20%] or non- advanced adenoma [31%]; or no colorectal neoplasia [45%]. These estimates are derived from a prospective cross-sectional screening study of 10,000 individuals at average risk for colorectal cancer who were screened with both Cologuard and colonoscopy. (Edith Hope. et al, N Engl J Med 2014;370(14):4877-6811.) Cologuard may produce a false negative or false positive result (no colorectal cancer or precancerous polyp present at colonoscopy follow up). A negative Cologuard test result does not guarantee the absence of CRC or advanced adenoma (pre-cancer). The current Cologuard screening interval is every 3 years. ([place] [employer] and U.S. Multi-Society Task Force). Cologuard performance data in a 10,000 patient pivotal study using colonoscopy as the reference method can be accessed at the following location: www.Ratify/results. Additional description of the Cologuard test process, warnings and precautions can be found at www.cologuard.com. Stool specimen (specimen) 07/06/2023 7:30 AM EST 07/07/2023 8:06 AM EST us Natalia Lopez NP LAB MOLECULAR DIAGNOSTICS ORDER [id number] Final Result [employer] (CLIA #:[id number]) [address] [id number], [facility] (CLIA #:[id number]) [address] [id number] from Last 3 Months or Most Recently Relevant to Health Maintenance Insurance [employer] Care Teams Devulcanizer Charger Relationship Specialty Start Date End Date Chinedu Correa MD PCP - General Family Medicine 08/14/23
--- OUTSIDE RECORDS SUMMARY | 2025-04-09 14:17 | XMS_ITS | Encounter Summary ---
Author Organization [facility] Address [address] [place] [address] Care Team Providers Care Histology Manager Name Role Phone Chinedu Correa MD Primary Care Provider [phone] Chinedu Correa MD Primary Care Provider [phone] Encounter Details Date Type Department Care Team ([facility] st Contact Info) Description 07/10/2023 Abstract [facility] [address] [place] [address] Natalia Lopez, CARIE [address] [place] [address] Social History Tobacco Use Types Packs/Day Years Used Date Smoking Tobacco: Never Smokeless Tobacco: Former Chew Alcohol Use Standard Drinks/Week Comments Yes 10 (1 standard drink = 0.6 oz pu re alcohol) Humiliation, Afraid, Rape, and Kick questionnair [...] often do you attend chur ch or zoroastrian services? 1 to 4 times per year 07/12/2023 Do you belong to any clubs o r organizations such as buddhist groups, unions, fraternal or athletic groups, or [...] and heating? Not hard at all 07/12/2023 [facility] - Occupational Stress [...] place to sleep or slept in a assisted (including now)? No 07/12/2023 Sex and Gender Information Value Date Recorded Sex Assigned at Not on file Legal Sex Male 8:47 AM EST Gender Identity Not on file Sexual Orientation Not on file documented as of this encounter Functional Status * Audit-C Score Answer Date of Assessment Author 8 07/12/2023 4:45 PM EST Mychart, Generic * Q1: How often do you have a drink containing alcohol? Answer Date of Assessment Author 2-3 times a week 07/12/2023 4:45 PM EST Mychart, Generic * Q2: How many drinks containing alcohol do you have on a typical day when you are drinking? Answer Date of Assessment Author 5 or 6 07/12/2023 4:45 PM EST Mychart, Generic * Q3: How often do you have six or more drinks on one occasion? Answer Date of Assessment Author Weekly 07/12/2023 4:45 PM EST Mychart, Generic documented as of this encounter Plan of Treatment Not on file documented as of this encounter Visit Diagnoses Not on filedocumented in this encounter Care Teams Histology Manager Relationship Specialty Start Date End Date Chinedu Correa MD PCP - General Family Medicine 06/21/23 08/13/23 Chinedu Correa MD PCP - General Family Medicine 08/14/23 documented as of this encounter
== END 2025-04-09 14:16 | disposition home or self-care (01) ==
LOC: SLEEP 14:16
PROVIDERS: PCP Nurse Practitioner; Visit Provider Psychiatry & Neurology Neurology
DX: G47.33 Obstructive sleep apnea (adult) (pediatric) (principal)